=== PATIENT | female | born 1955 | race Caucasian/White ===

== ENCOUNTER 2019-09-30 20:23 | Inpatient (IN) | payer BC ==
[2019-09-30] MEDS ORDERED: Ondansetron 4 MG/2 ML SDV IVPUSH ONE ×2 (20:34→21:42)
[2019-09-30] MEDS ORDERED: Sodium Chloride 0.9% 1,000 ML IV ONE (20:34)
[2019-09-30] MEDS ORDERED: Alum Hydrox/Mag Hydrox/Simeth 15 ML, Metoclopramide 5 MG, Lidocaine 2% 5 ML PO ONE ×3 (20:37)
--- NOTE | 2019-09-30 20:41 | EDM.PDOC ---
<Maico Gonzalez - Last Filed: 09/30/19 23:50> ED HPI GENERAL MEDICAL PROBLEM - General Chief Complaint: Abdominal Pain Stated Complaint: ABDOMINAL PAIN Time Seen by Provider: 09/30/19 20:24 - Related Data Allergies Allergy/AdvReac Type Severity Reaction Status Date / Time omeprazole [From Prilosec] Allergy Itching Verified 10/01/19 04:53 Home Meds: Home Meds . [No Known Home Meds] 09/30/19 [History] Course - Vital Signs Text/Narrative:: The patient was presented to me at the end of the shift because the patient was still having some nausea vomiting and abdominal pain. I discussed the patient with the JOSHUA, and given the initial thought process that the patient previously had an unremarkable CT scan of the abdomen and pelvis that we could simply medicate the patient and then her to pick her up and take her home since her her pain usually resolves within a day. As she is currently having active pain a CT scan of the abdomen pelvis was ordered and the radiologist is concerned that the patient has an internal hernia /developing volvulus causing a small bowel obstruction. I contacted Dr. Wasserman, and she came to the ER to evaluate the patient. Last Recorded V/S: Last Vital Signs Temp 99 F 10/03/19 07:30 Pulse 66 10/03/19 07:30 Resp 15 10/03/19 07:30 BP 137/69 10/03/19 07:30 Pulse Ox 96 10/03/19 07:30 - Orders/Labs/Meds Orders: Medication Orders Acetaminophen (Tylenol) 650 mg PO Q6H PRN PRN Reason: Pain Last Admin: 10/02/19 21:43 Dose: 650 mg Heparin Sodium (Porcine) (Heparin Sodium) 5,000 units SUBCUT Q12H FLORENTINO Last Admin: 10/03/19 09:26 Dose: 5,000 units Admin: 10/02/19 21:42 Dose: 5,000 units Admin: 10/02/19 09:08 Dose: 5,000 units Admin: 10/01/19 22:04 Dose: 5,000 units Admin: 10/01/19 10:33 Dose: 5,000 units Hydromorphone HCl (Dilaudid) 0.5 mg IVPUSH Q1H PRN PRN Reason: Pain Ketorolac Tromethamine (Toradol) 30 mg IVPUSH Q8H PRN PRN Reason: Pain Stop: 10/06/19 02:51 Last Admin: 10/02/19 05:27 Dose: 30 mg Admin: 10/01/19 13:18 Dose: 30 mg Ondansetron HCl (Zofran) 4 mg PO Q6H PRN PRN Reason: Nausea/Vomiting Last Admin: 10/01/19 10:06 Dose: 4 mg Polyethylene Glycol (Miralax) 17 gm PO DAILY FLORENTINO Last Admin: 10/03/19 08:08 Dose: 17 gm Sodium Chloride (Saline Flush) 10 ml FLUSH ASDIRECTED PRN PRN Reason: Keep Vein Open Sodium Chloride (Saline Flush) 2.5 ml FLUSH ASDIRECTED PRN PRN Reason: Keep Vein Open Sodium Chloride (Normal Saline) 10 ml IV ASDIRECTED PRN PRN Reason: IV Use Labs: Laboratory Tests 09/30/19 09/30/19 09/30/19 Range/Units 20:45 20:45 20:45 WBC 9.27 (4.0-11.0) K/uL RBC 4.02 L (4.30-5.90) M/uL Hgb 13.1 (12.0-16.0) g/dL Hct 39.2 (36.0-46.0) % MCV 97.5 (80.0-98.0) fL MCH 32.6 H (27.0-32.0) pg MCHC 33.4 (31.0-37.0) g/dL RDW Std Deviation 44.7 (28.0-62.0) fl RDW Coeff of [place] 12 (11.0-15.0) % Plt Count 178 (150-400) K/uL MPV 9.70 (7.40-12.00) fL Neut % (Auto) 68.7 (48.0-80.0) % Lymph % (Auto) 25.5 (16.0-40.0) % [place] % (Auto) 5.3 (0.0-15.0) % Eos % (Auto) 0.2 (0.0-7.0) % Baso % (Auto) 0.3 (0.0-1.5) % Neut # (Auto) 6.4 H (1.4-5.7) K/uL Lymph # (Auto) 2.4 (0.6-2.4) K/uL [place] # (Auto) 0.5 (0.0-0.8) K/uL Eos # (Auto) 0.0 (0.0-0.7) K/uL Baso # (Auto) 0.0 (0.0-0.1) K/uL Nucleated RBC % 0.0 /100WBC Nucleated RBCs # 0 K/uL Lactate 1.1 (0.20-2.00) mmol/L Sodium 144 (136-145) mmol/L Potassium 3.7 (3.5-5.1) mmol/L Chloride 105 (98-107) mmol/L Carbon Dioxide 28.2 (21.0-32.0) mmol/L BUN 18 (7.0-18.0) mg/dL Creatinine 0.8 (0.6-1.0) mg/dL Est Cr Clr Drug Dosing 68.26 mL/min Estimated GFR (MDRD) > 60.0 ml/min Glucose 131 H (74-106) mg/dL Calcium 9.0 (8.5-10.1) mg/dL Total Bilirubin 0.4 (0.2-1.0) mg/dL AST 20 (15-37) IU/L ALT 23 (14-63) IU/L Alkaline Phosphatase 52 (46-116) U/L Total Protein 7.3 (6.4-8.2) g/dL Albumin 4.2 (3.4-5.0) g/dL Globulin 3.1 (2.6-4.0) g/dL Albumin/Globulin Ratio 1.4 (0.9-1.6) Lipase 101 (73-393) U/L Urine Color Urine Appearance Urine pH (5.0-8.0) Ur Specific [place] (1.001-1.035) Urine Protein (NEGATIVE) mg/dL Urine Glucose (UA) (NEGATIVE) mg/dL Urine Ketones (NEGATIVE) mg/dL Urine Occult Blood (NEGATIVE) Urine Nitrite (NEGATIVE) Urine Bilirubin (NEGATIVE) Urine Urobilinogen (<2.0) EU/dL Ur Leukocyte Esterase (NEGATIVE) Urine RBC (0-2/HPF) Urine WBC (0-5/HPF) Ur Epithelial Cells (NONE-FEW) Amorphous Sediment (NEGATIVE) Urine Bacteria (NEGATIVE) 09/30/19 Range/Units 21:50 WBC (4.0-11.0) K/uL RBC (4.30-5.90) M/uL Hgb (12.0-16.0) g/dL Hct (36.0-46.0) % MCV (80.0-98.0) fL MCH (27.0-32.0) pg MCHC (31.0-37.0) g/dL RDW Std Deviation (28.0-62.0) fl RDW Coeff of [place] (11.0-15.0) % Plt Count (150-400) K/uL MPV (7.40-12.00) fL Neut % (Auto) (48.0-80.0) % Lymph % (Auto) (16.0-40.0) % [place] % (Auto) (0.0-15.0) % Eos % (Auto) (0.0-7.0) % Baso % (Auto) (0.0-1.5) % Neut # (Auto) (1.4-5.7) K/uL Lymph # (Auto) (0.6-2.4) K/uL [place] # (Auto) (0.0-0.8) K/uL Eos # (Auto) (0.0-0.7) K/uL Baso # (Auto) (0.0-0.1) K/uL Nucleated RBC % /100WBC Nucleated RBCs # K/uL Lactate (0.20-2.00) mmol/L Sodium (136-145) mmol/L Potassium (3.5-5.1) mmol/L Chloride (98-107) mmol/L Carbon Dioxide (21.0-32.0) mmol/L BUN (7.0-18.0) mg/dL Creatinine (0.6-1.0) mg/dL Est Cr Clr Drug Dosing mL/min Estimated GFR (MDRD) ml/min Glucose (74-106) mg/dL Calcium (8.5-10.1) mg/dL Total Bilirubin (0.2-1.0) mg/dL AST (15-37) IU/L ALT (14-63) IU/L Alkaline Phosphatase (46-116) U/L Total Protein (6.4-8.2) g/dL Albumin (3.4-5.0) g/dL Globulin (2.6-4.0) g/dL Albumin/Globulin Ratio (0.9-1.6) Lipase (73-393) U/L Urine Color YELLOW Urine Appearance SLT CLOUDY Urine pH 8.5 H (5.0-8.0) Ur Specific [place] 1.020 (1.001-1.035) Urine Protein NEGATIVE (NEGATIVE) mg/dL Urine Glucose (UA) NEGATIVE (NEGATIVE) mg/dL Urine Ketones >=80 (NEGATIVE) mg/dL Urine Occult Blood NEGATIVE (NEGATIVE) Urine Nitrite NEGATIVE (NEGATIVE) Urine Bilirubin NEGATIVE (NEGATIVE) Urine Urobilinogen 0.2 (<2.0) EU/dL Ur Leukocyte Esterase TRACE H (NEGATIVE) Urine RBC 0-1 (0-2/HPF) Urine WBC 4-7 (0-5/HPF) Ur Epithelial Cells OCCASIONAL (NONE-FEW) Amorphous Sediment HEAVY (NEGATIVE) Urine Bacteria RARE (NEGATIVE) Meds: Medications Generic Name Dose Route Start Last Admin Trade Name Freq PRN Reason Stop Dose Admin Acetaminophen 650 mg 10/01/19 13:10 10/02/19 21:43 Tylenol PO 650 mg Q6H PRN Administration Pain Heparin Sodium (Porcine) 5,000 units 10/01/19 10:00 10/03/19 09:26 Heparin Sodium SUBCUT 5,000 units Q12H FLORENTINO Administration Hydromorphone HCl 0.5 mg 10/01/19 02:50 Dilaudid IVPUSH Q1H PRN Pain Ketorolac Tromethamine 30 mg 10/01/19 12:00 10/02/19 05:27 Toradol IVPUSH 10/06/19 02:51 30 mg Q8H PRN Administration Pain Ondansetron HCl 4 mg 10/01/19 02:53 10/01/19 10:06 Zofran PO 4 mg Q6H PRN Administration Nausea/Vomiting Polyethylene Glycol 17 gm 10/03/19 09:00 10/03/19 08:08 Miralax PO 17 gm DAILY FLORENTINO Administration Sodium Chloride 10 ml 10/01/19 00:20 Saline Flush FLUSH ASDIRECTED PRN Keep Vein Open Sodium Chloride 2.5 ml 10/01/19 00:20 Saline Flush FLUSH ASDIRECTED PRN Keep Vein Open Sodium Chloride 10 ml 10/01/19 00:20 Normal Saline IV ASDIRECTED PRN IV Use Discontinued Medications Generic Name Dose Route Start Last Admin Trade Name Darryl PRN Reason Stop Dose Admin Bupivacaine HCl Confirm 10/01/19 00:59 Marcaine 0.5% Administered 10/01/19 01:00 Dose 120 ml .ROUTE .STK-MED ONE Cefazolin Sodium Confirm 10/01/19 00:59 Ancef Administered 10/01/19 01:00 Dose 1 gm .ROUTE .STK-MED ONE Al Hydroxide/Mg Hydroxide 15 0 ml 09/30/19 20:37 09/30/19 20:52 ml/ Metoclopramide HCl 5 mg/ PO 09/30/19 20:38 25 each Lidocaine HCl 5 ml ONETIME ONE Administration Fentanyl Confirm 10/01/19 00:33 Sublimaze Administered 10/01/19 00:34 Dose 100 mcg .ROUTE .STK-MED ONE Glycopyrrolate Confirm 10/01/19 00:33 Robinul Administered 10/01/19 00:34 Dose 0.2 mg .ROUTE .STK-MED ONE Sodium Chloride 1,000 mls @ 999 mls/hr 09/30/19 20:34 09/30/19 20:53 Normal Saline IV 09/30/19 21:34 999 mls/hr STAT ONE Administration Cefazolin Sodium/Dextrose 2 gm 50 mls @ 100 mls/hr 10/01/19 00:20 10/01/19 00 :28 / Premix IV 10/01/19 00:49 100 mls/hr ONETIME ONE Administration Lactated Ringer's 1,000 mls @ 125 mls/hr 10/01/19 00:30 10/01/19 23:45 Ringers, Lactated IV 125 mls/hr ASDIRECTED FLORENTINO Administration Lactated Ringer's 1,000 mls @ 999 mls/hr 10/01/19 00:22 10/01/19 00:28 Ringers, Lactated IV 10/01/19 01:22 999 mls/hr .BOLUS ONE Administration Acetaminophen Confirm 10/01/19 00:40 Ofirmev Administered 10/01/19 00:41 Dose 100 mls @ as directed .ROUTE .STK-MED ONE Piperacillin Sod/Tazobactam 50 mls @ 100 mls/hr 10/01/19 06:00 10/02/19 05:41 Sod 3.375 gm/ Sodium Chloride IV 100 mls/hr Q6H FLORENTINO Administration Ketorolac Tromethamine 30 mg 09/30/19 21:06 09/30/19 21:15 Toradol IVPUSH 09/30/19 21:07 30 mg ONETIME ONE Administration Ketorolac Tromethamine Confirm 10/01/19 00:33 Toradol Administered 10/01/19 00:34 Dose 30 mg .ROUTE .STK-MED ONE Midazolam HCl Confirm 10/01/19 00:33 Versed 1 Mg/Ml Administered 10/01/19 00:34 Dose 2 mg .ROUTE .STK-MED ONE Morphine Sulfate 2 mg 09/30/19 21:51 09/30/19 22:02 Morphine IVPUSH 09/30/19 21:52 2 mg ONETIME ONE Administration Morphine Sulfate Confirm 10/01/19 00:37 Morphine Administered 10/01/19 00:38 Dose 10 mg .ROUTE .STK-MED ONE Morphine Sulfate 4 mg 10/01/19 01:56 10/01/19 03:04 Morphine IVPUSH 10/01/19 01:57 4 mg ONETIME ONE Administration Ondansetron HCl 4 mg 09/30/19 20:34 09/30/19 20:53 Zofran IVPUSH 09/30/19 20:35 4 mg ONETIME ONE Administration Ondansetron HCl 4 mg 09/30/19 21:42 09/30/19 21:46 Zofran IVPUSH 09/30/19 21:43 4 mg ONETIME ONE Administration Ondansetron HCl Confirm 10/01/19 00:32 Zofran Administered 10/01/19 00:33 Dose 4 mg .ROUTE .STK-MED ONE Promethazine HCl 25 mg 09/30/19 21:53 10/01/19 04:56 Phenergan IM 10/01/19 00:06 Not Given ONETIME ONE Propofol Confirm 10/01/19 00:32 Diprivan 20 Ml Administered 10/01/19 00:33 Dose 200 mg .ROUTE .STK-MED ONE Rocuronium [place] Confirm 10/01/19 00:33 Zemuron Administered 10/01/19 00:34 Dose 100 mg .ROUTE .STK-MED ONE Rocuronium [place] Confirm 04/13/20 01:48 Zemuron Administered 10/01/19 01:49 Dose 100 mg .ROUTE .STK-MED ONE Sugammadex Sodium Confirm 10/01/19 00:40 [place] Administered 10/01/19 00:41 Dose 200 mg .ROUTE .STK-MED ONE Departure - Departure Time of Disposition: 23:50 Disposition: Admitted As Inpatient 67 Condition: Good Clinical Impression: Small bowel obstruction - Discharge Information Sepsis Event Note - Focused Exam Date Exam was Performed: 09/30/19 Time Exam was Performed: 23:50 <Carlos Bhat E - Last Filed: 10/03/19 10:19> ED HPI GENERAL MEDICAL PROBLEM - General Source of Information: Reports: Patient History Limitations: Reports: No Limitations - History of Present Illness INITIAL COMMENTS - FREE TEXT/NARRATIVE: HISTORY AND PHYSICAL: History of present illness: Patient is a 63-year-old female who presents to the emergency room with complaints of epigastric pain, right lower quadrant pain, nausea and vomiting. Patient states over the past 5 to 6 months she has had episodes where she will have symptoms like today that will last for approximately half a day to a day and they have been occurring every other month. She did see her primary care provider on 05/2019 and had basic lab work along with a CT without contrast. At that time there was no significant findings and she was told to continue monitoring her symptoms. She was encouraged by her PCP that if this occurred again she should come into the emergency room for reevaluation. Symptoms started this afternoon and she did feel some improvement after vomiting. Shortly after her pain and nausea returned. She does not associate her symptoms with eating. Patient denies any fever, chills, headache, change in vision, syncope or near syncope. Denies any chest pain, back pain, shortness of breath or cough. Denies any diarrhea, constipation or dysuria. Has not noted any blood in urine or stool. Patient has been eating and drinking appropriately. Patient states she recently saw her COMPOUND WORKER and had a complete physical with Pap smear, results were normal. History of cholecystectomy. Review of systems: As per history of present illness and below otherwise all systems reviewed and negative. Past medical history: As per history of present illness and as reviewed below otherwise noncontributory. Surgical history: As per history of present illness and as reviewed below otherwise noncontributory. Social history: See social history for further information Family history: As per history of present illness and as reviewed below otherwise noncontributory. Physical exam: General: Well-developed and well-nourished 63-year-old female. Alert and oriented. Nontoxic-appearing and in no acute distress. HEENT: Atraumatic, normocephalic, pupils equal and reactive bilaterally, negative for conjunctival pallor or scleral icterus, mucous membranes moist, TMs normal bilaterally, throat clear, neck supple, nontender, trachea midline. No drooling or trismus noted. No meningeal signs. No hot potato voice noted. Lungs: Clear to auscultation, breath sounds equal bilaterally, chest nontender. Heart: S1S2, regular rate and rhythm without overt murmur Abdomen: Soft, nondistended, epigastric tenderness, right lower quadrant tenderness. No guarding. Negative for masses or hepatosplenomegaly. Negative for costovertebral tenderness. Skin: Intact, warm, dry. No lesions or rashes noted. Extremities: Atraumatic, moves all extremities per self without difficulty or deficits, negative for cords or calf pain. Neurovascular unremarkable. Neuro: Awake, alert, oriented. Cranial nerves II through XII unremarkable. Cerebellum unremarkable. Motor and sensory unremarkable throughout. Exam nonfocal. Notes: Lab work is unremarkable. Patient still nauseated and requesting additional pain medication. She states her allergy to Morphine isn't a true allergy. She had a sore throat after and endoscopy, she also received Morphine at that time and throught it could have been related. She would like to try the morphine at this time. is driving patient home. We are awaiting the CT report/ findings. Dr Schreiber will assume care and disposition patient appropriately. Diagnostics: CBC, CMP, lipase, UA, CT abdomen and pelvis Therapeutics: IV fluid, Zofran, GI cocktail Diagnosis: Small Bowel Obstruction Definitive disposition and diagnosis as appropriate pending reevaluation and review of above. EPIGASTRIC Pain Score (Numeric/FACES): 8 Past Medical History - Past Health History Medical/Surgical History: Denies Medical/Surgical History Other COMPOUND WORKER History: TUBAL - Infectious Disease History Infectious Disease History: Reports: Chicken Pox - Past Surgical History HEENT Surgical History: Reports: Tonsillectomy GI Surgical History: Reports: Cholecystectomy Social & Family History - Family History Family Medical History: Noncontributory - Tobacco Use Smoking Status *Q: Never Smoker ED ROS GENERAL - Review of Systems Review Of Systems: Comprehensive ROS is negative, except as noted in HPI. ED EXAM, GI/ABD - Physical Exam Exam: See Below (See dictation) Course - Orders/Labs/Meds Labs: Laboratory Tests 09/30/19 09/30/19 09/30/19 Range/Units 20:45 20:45 20:45 WBC 9.27 (4.0-11.0) K/uL RBC 4.02 L (4.30-5.90) M/uL Hgb 13.1 (12.0-16.0) g/dL Hct 39.2 (36.0-46.0) % MCV 97.5 (80.0-98.0) fL MCH 32.6 H (27.0-32.0) pg MCHC 33.4 (31.0-37.0) g/dL RDW Std Deviation 44.7 (28.0-62.0) fl RDW Coeff of [place] 12 (11.0-15.0) % Plt Count 178 (150-400) K/uL MPV 9.70 (7.40-12.00) fL Neut % (Auto) 68.7 (48.0-80.0) % Lymph % (Auto) 25.5 (16.0-40.0) % [place] % (Auto) 5.3 (0.0-15.0) % Eos % (Auto) 0.2 (0.0-7.0) % Baso % (Auto) 0.3 (0.0-1.5) % Neut # (Auto) 6.4 H (1.4-5.7) K/uL Lymph # (Auto) 2.4 (0.6-2.4) K/uL [place] # (Auto) 0.5 (0.0-0.8) K/uL Eos # (Auto) 0.0 (0.0-0.7) K/uL Baso # (Auto) 0.0 (0.0-0.1) K/uL Nucleated RBC % 0.0 /100WBC Nucleated RBCs # 0 K/uL Lactate 1.1 (0.20-2.00) mmol/L Sodium 144 (136-145) mmol/L Potassium 3.7 (3.5-5.1) mmol/L Chloride 105 (98-107) mmol/L Carbon Dioxide 28.2 (21.0-32.0) mmol/L BUN 18 (7.0-18.0) mg/dL Creatinine 0.8 (0.6-1.0) mg/dL Est Cr Clr Drug Dosing 68.26 mL/min Estimated GFR (MDRD) > 60.0 ml/min Glucose 131 H (74-106) mg/dL Calcium 9.0 (8.5-10.1) mg/dL Total Bilirubin 0.4 (0.2-1.0) mg/dL AST 20 (15-37) IU/L ALT 23 (14-63) IU/L Alkaline Phosphatase 52 (46-116) U/L Total Protein 7.3 (6.4-8.2) g/dL Albumin 4.2 (3.4-5.0) g/dL Globulin 3.1 (2.6-4.0) g/dL Albumin/Globulin Ratio 1.4 (0.9-1.6) Lipase 101 (73-393) U/L Urine Color Urine Appearance Urine pH (5.0-8.0) Ur Specific [place] (1.001-1.035) Urine Protein (NEGATIVE) mg/dL Urine Glucose (UA) (NEGATIVE) mg/dL Urine Ketones (NEGATIVE) mg/dL Urine Occult Blood (NEGATIVE) Urine Nitrite (NEGATIVE) Urine Bilirubin (NEGATIVE) Urine Urobilinogen (<2.0) EU/dL Ur Leukocyte Esterase (NEGATIVE) Urine RBC (0-2/HPF) Urine WBC (0-5/HPF) Ur Epithelial Cells (NONE-FEW) Amorphous Sediment (NEGATIVE) Urine Bacteria (NEGATIVE) 09/30/19 Range/Units 21:50 WBC (4.0-11.0) K/uL RBC (4.30-5.90) M/uL Hgb (12.0-16.0) g/dL Hct (36.0-46.0) % MCV (80.0-98.0) fL MCH (27.0-32.0) pg MCHC (31.0-37.0) g/dL RDW Std Deviation (28.0-62.0) fl RDW Coeff of [place] (11.0-15.0) % Plt Count (150-400) K/uL MPV (7.40-12.00) fL Neut % (Auto) (48.0-80.0) % Lymph % (Auto) (16.0-40.0) % [place] % (Auto) (0.0-15.0) % Eos % (Auto) (0.0-7.0) % Baso % (Auto) (0.0-1.5) % Neut # (Auto) (1.4-5.7) K/uL Lymph # (Auto) (0.6-2.4) K/uL [place] # (Auto) (0.0-0.8) K/uL Eos # (Auto) (0.0-0.7) K/uL Baso # (Auto) (0.0-0.1) K/uL Nucleated RBC % /100WBC Nucleated RBCs # K/uL Lactate (0.20-2.00) mmol/L Sodium (136-145) mmol/L Potassium (3.5-5.1) mmol/L Chloride (98-107) mmol/L Carbon Dioxide (21.0-32.0) mmol/L BUN (7.0-18.0) mg/dL Creatinine (0.6-1.0) mg/dL Est Cr Clr Drug Dosing mL/min Estimated GFR (MDRD) ml/min Glucose (74-106) mg/dL Calcium (8.5-10.1) mg/dL Total Bilirubin (0.2-1.0) mg/dL AST (15-37) IU/L ALT (14-63) IU/L Alkaline Phosphatase (46-116) U/L Total Protein (6.4-8.2) g/dL Albumin (3.4-5.0) g/dL Globulin (2.6-4.0) g/dL Albumin/Globulin Ratio (0.9-1.6) Lipase (73-393) U/L Urine Color YELLOW Urine Appearance SLT CLOUDY Urine pH 8.5 H (5.0-8.0) Ur Specific [place] 1.020 (1.001-1.035) Urine Protein NEGATIVE (NEGATIVE) mg/dL Urine Glucose (UA) NEGATIVE (NEGATIVE) mg/dL Urine Ketones >=80 (NEGATIVE) mg/dL Urine Occult Blood NEGATIVE (NEGATIVE) Urine Nitrite NEGATIVE (NEGATIVE) Urine Bilirubin NEGATIVE (NEGATIVE) Urine Urobilinogen 0.2 (<2.0) EU/dL Ur Leukocyte Esterase TRACE H (NEGATIVE) Urine RBC 0-1 (0-2/HPF) Urine WBC 4-7 (0-5/HPF) Ur Epithelial Cells OCCASIONAL (NONE-FEW) Amorphous Sediment HEAVY (NEGATIVE) Urine Bacteria RARE (NEGATIVE) Sepsis Event Note - Evaluation Sepsis Screening Result: No Definite Risk - Focused Exam Date Exam was Performed: 10/03/19 Time Exam was Performed: 10:12
[2019-09-30] MEDS ORDERED: Ketorolac 30 MG/ML SDV IVPUSH ONE (21:06)
[2019-09-30 21:25] LABS: BLOOD UREA NITROGEN,BUN 18 mg/dL (7.0-18.0); CARBON DIOXIDE,CO2 28.2 mmol/L (21.0-32.0); CHLORIDE,CL 105 mmol/L (98-107); GLUCOSE RANDOM 131 mg/dL (74-106); LIPASE 101 U/L (73-393); POTASSIUM,K 3.7 mmol/L (3.5-5.1); SODIUM,NA 144 mmol/L (136-145)
[2019-09-30] MEDS ORDERED: Morphine 2 MG/ML Syringe IVPUSH ONE (21:51)
[2019-09-30] MEDS ORDERED: Promethazine 25 MG/ML SDV IM ONE (21:53)
--- NOTE | 2019-09-30 22:28 | CT ---
INDICATION: Epigastric pain. Right lower quadrant pain. COMPARISON: 14 June 2019. TECHNIQUE: Noncontrast images. FINDINGS: Saline breast implants. Linguine sign of chronic capsule disruption. Cholecystectomy clips. No nephrolithiasis. Moderate formed stool through the redundant colon. Loops of mildly dilated small bowel show stasis changes in the low abdomen and ventral pelvis. Swirling configuration suggest internal hernia or small bowel volvulus (image 80 through 101 series 201). No free air. No free fluid. No pneumatosis. No portal venous gas. Proximal small bowel is not. Minor levoscoliosis. No fracture or bone lesion. IMPRESSION: 1. Internal hernia or small bowel volvulus with mildly dilated loops of presumed distal ileum demonstrating changes of intraluminal stasis in the low abdomen and ventral pelvis. Surgical referral recommended. 2. No other significant interval change. Please note that all CT scans at this facility use dose modulation, iterative reconstruction, and/or weight-based dosing when appropriate to reduce radiation dose to as low as reasonably achievable. Dictated by Matthieu Leslie MD @ Sep 30 2019 10:25PM Signed by Dr. Matthieu Leslie @ Sep 30 2019 10:25PM
[2019-10-01] MEDS ORDERED: Sodium Chloride 0.9% 10 ML SDV IV PRN (00:20)
[2019-10-01] MEDS ORDERED: Sodium Chloride 0.9% 2.5 ML Syringe FLUSH PRN (00:20)
[2019-10-01] MEDS ORDERED: ceFAZolin 2 GM in Premix Bag 1 BAG IV ONE (00:20)
[2019-10-01] MEDS ORDERED: Sodium Chloride 0.9% 10 ML Syringe FLUSH PRN (00:20)
[2019-10-01] MEDS ORDERED: Lactated Ringers 1,000 ML IV ONE (00:22)
--- NOTE | 2019-10-01 00:28 | PCM.HP.2 ---
H&P History of Present Illness - General Date of Service: 10/01/19 Admit Problem/Dx: Admission Diagnosis/Problem Admission Diagnosis/Problem Small bowel obstruction Source of Information: Patient History Limitations: Reports: No Limitations - History of Present Illness Initial Comments - Free Text/Narative: Patient is a 63 year old female who presents with abdominal pain. This was associated with nausea and vomiting. She has had similar episodes starting in May. It begins as constant abdominal pain that causes nausea and vomiting. This will persist for a day or two then resolve on its own. After it happened in May she had a CT abdomen pelvis that was normal. She was in a normal state of health, had a BM today, and ate supper when around 6 pm she started developing pain. Shortly after she started vomiting. She denies fevers, chills. Her last colonoscopy was 2 years ago. She was found to have a small tubular adenoma. No family history of cancers. She has had a laparoscopic cholecystectomy and tubal ligation. She denies any history of endometriosis. She denies any changes in her bowel habits otherwise. Her vitals were stable on arrival. All labs including lactate was normal. CT abdomen pelvis showed a 120 degree turn of the distal ileum. There was no evidence of thickened bowel but evidence of mild proximal bowel dilation. The radiologist questioned an internal hernia vs volvulus. EPIGASTRIC Pain Score (Numeric/FACES): 8 - Related Data Allergies/Adverse Reactions: Allergies Allergy/AdvReac Type Severity Reaction Status Date / Time omeprazole [From Prilosec] Allergy Itching Verified 09/30/19 20:33 Home Medications: Home Meds . [No Known Home Meds] 09/30/19 [History] Past Medical History - Past Health History Medical/Surgical History: Denies Medical/Surgical History Other OB/BYN History: TUBAL - Infectious Disease History Infectious Disease History: Reports: Chicken Pox - Past Surgical History HEENT Surgical History: Reports: Tonsillectomy GI Surgical History: Reports: Cholecystectomy Social & Family History - Family History Family Medical History: Noncontributory - Tobacco Use Smoking Status *Q: Never Smoker H&P Review of Systems - Review of Systems: Review Of Systems: Comprehensive ROS is negative, except as noted in HPI. General: Reports: No Symptoms HEENT: Reports: No Symptoms Pulmonary: Reports: No Symptoms Cardiovascular: Reports: No Symptoms Gastrointestinal: Reports: Abdominal Pain Genitourinary: Reports: No Symptoms Musculoskeletal: Reports: No Symptoms Skin: Reports: No Symptoms Psychiatric: Reports: No Symptoms Exam - Exam Exam: See Below - Vital Signs Vital Signs: Last Vital Signs Temp 36.4 C 10/01/19 00:01 Pulse 81 10/01/19 00:01 Resp 18 10/01/19 00:01 BP 136/43 L 10/01/19 00:01 Pulse Ox 97 10/01/19 00:01 Weight: 63.503 kg - Exam General: Alert, Oriented HEENT: Conjunctiva Clear, Mucosa Moist & [place], Posterior Pharynx Clear Neck: Supple, Trachea Midline Lungs: Clear to Auscultation, Normal Respiratory Effort Cardiovascular: Regular Rate, Regular Rhythm GI/Abdominal Exam: Soft, Tender (epigastric area ). No: Guarding, Rigid, Rebound Back Exam: Normal Inspection, Full Range of Motion Extremities: Normal Inspection, Normal Range of Motion Skin: Warm, Dry, Intact Neuro Extensive - Mental Status: Alert, Oriented x3 - Patient Data Lab Results Last 24 hrs: Laboratory Results - last 24 hr 09/30/19 09/30/19 09/30/19 Range/Units 20:45 20:45 20:45 WBC 9.27 (4.0-11.0) K/uL RBC 4.02 L (4.30-5.90) M/uL Hgb 13.1 (12.0-16.0) g/dL Hct 39.2 (36.0-46.0) % MCV 97.5 (80.0-98.0) fL MCH 32.6 H (27.0-32.0) pg MCHC 33.4 (31.0-37.0) g/dL RDW Std Deviation 44.7 (28.0-62.0) fl RDW Coeff of [place] 12 (11.0-15.0) % Plt Count 178 (150-400) K/uL MPV 9.70 (7.40-12.00) fL Neut % (Auto) 68.7 (48.0-80.0) % Lymph % (Auto) 25.5 (16.0-40.0) % [place] % (Auto) 5.3 (0.0-15.0) % Eos % (Auto) 0.2 (0.0-7.0) % Baso % (Auto) 0.3 (0.0-1.5) % Neut # (Auto) 6.4 H (1.4-5.7) K/uL Lymph # (Auto) 2.4 (0.6-2.4) K/uL [place] # (Auto) 0.5 (0.0-0.8) K/uL Eos # (Auto) 0.0 (0.0-0.7) K/uL Baso # (Auto) 0.0 (0.0-0.1) K/uL Nucleated RBC % 0.0 /100WBC Nucleated RBCs # 0 K/uL Lactate 1.1 (0.20-2.00) mmol/L Sodium 144 (136-145) mmol/L Potassium 3.7 (3.5-5.1) mmol/L Chloride 105 (98-107) mmol/L Carbon Dioxide 28.2 (21.0-32.0) mmol/L BUN 18 (7.0-18.0) mg/dL Creatinine 0.8 (0.6-1.0) mg/dL Est Cr Clr Drug Dosing 68.26 mL/min Estimated GFR (MDRD) > 60.0 ml/min Glucose 131 H (74-106) mg/dL Calcium 9.0 (8.5-10.1) mg/dL Total Bilirubin 0.4 (0.2-1.0) mg/dL AST 20 (15-37) IU/L ALT 23 (14-63) IU/L Alkaline Phosphatase 52 (46-116) U/L Total Protein 7.3 (6.4-8.2) g/dL Albumin 4.2 (3.4-5.0) g/dL Globulin 3.1 (2.6-4.0) g/dL Albumin/Globulin Ratio 1.4 (0.9-1.6) Lipase 101 (73-393) U/L Urine Color Urine Appearance Urine pH (5.0-8.0) Ur Specific [place] (1.001-1.035) Urine Protein (NEGATIVE) mg/dL Urine Glucose (UA) (NEGATIVE) mg/dL Urine Ketones (NEGATIVE) mg/dL Urine Occult Blood (NEGATIVE) Urine Nitrite (NEGATIVE) Urine Bilirubin (NEGATIVE) Urine Urobilinogen (<2.0) EU/dL Ur Leukocyte Esterase (NEGATIVE) Urine RBC (0-2/HPF) Urine WBC (0-5/HPF) Ur Epithelial Cells (NONE-FEW) Amorphous Sediment (NEGATIVE) Urine Bacteria (NEGATIVE) 09/30/19 Range/Units 21:50 WBC (4.0-11.0) K/uL RBC (4.30-5.90) M/uL Hgb (12.0-16.0) g/dL Hct (36.0-46.0) % MCV (80.0-98.0) fL MCH (27.0-32.0) pg MCHC (31.0-37.0) g/dL RDW Std Deviation (28.0-62.0) fl RDW Coeff of [place] (11.0-15.0) % Plt Count (150-400) K/uL MPV (7.40-12.00) fL Neut % (Auto) (48.0-80.0) % Lymph % (Auto) (16.0-40.0) % [place] % (Auto) (0.0-15.0) % Eos % (Auto) (0.0-7.0) % Baso % (Auto) (0.0-1.5) % Neut # (Auto) (1.4-5.7) K/uL Lymph # (Auto) (0.6-2.4) K/uL [place] # (Auto) (0.0-0.8) K/uL Eos # (Auto) (0.0-0.7) K/uL Baso # (Auto) (0.0-0.1) K/uL Nucleated RBC % /100WBC Nucleated RBCs # K/uL Lactate (0.20-2.00) mmol/L Sodium (136-145) mmol/L Potassium (3.5-5.1) mmol/L Chloride (98-107) mmol/L Carbon Dioxide (21.0-32.0) mmol/L BUN (7.0-18.0) mg/dL Creatinine (0.6-1.0) mg/dL Est Cr Clr Drug Dosing mL/min Estimated GFR (MDRD) ml/min Glucose (74-106) mg/dL Calcium (8.5-10.1) mg/dL Total Bilirubin (0.2-1.0) mg/dL AST (15-37) IU/L ALT (14-63) IU/L Alkaline Phosphatase (46-116) U/L Total Protein (6.4-8.2) g/dL Albumin (3.4-5.0) g/dL Globulin (2.6-4.0) g/dL Albumin/Globulin Ratio (0.9-1.6) Lipase (73-393) U/L Urine Color YELLOW Urine Appearance SLT CLOUDY Urine pH 8.5 H (5.0-8.0) Ur Specific [place] 1.020 (1.001-1.035) Urine Protein NEGATIVE (NEGATIVE) mg/dL Urine Glucose (UA) NEGATIVE (NEGATIVE) mg/dL Urine Ketones >=80 (NEGATIVE) mg/dL Urine Occult Blood NEGATIVE (NEGATIVE) Urine Nitrite NEGATIVE (NEGATIVE) Urine Bilirubin NEGATIVE (NEGATIVE) Urine Urobilinogen 0.2 (<2.0) EU/dL Ur Leukocyte Esterase TRACE H (NEGATIVE) Urine RBC 0-1 (0-2/HPF) Urine WBC 4-7 (0-5/HPF) Ur Epithelial Cells OCCASIONAL (NONE-FEW) Amorphous Sediment HEAVY (NEGATIVE) Urine Bacteria RARE (NEGATIVE) Result Diagrams: 09/30/19 20:45 09/30/19 20:45 Sepsis Event Note - Evaluation Sepsis Screening Result: No Definite Risk - Focused Exam Vital Signs: Vital Signs Temp Pulse Resp BP Pulse Ox 10/01/19 00:01 36.4 C 81 18 136/43 L 97 09/30/19 23:15 65 115/62 99 09/30/19 21:47 63 19 130/55 L 99 09/30/19 20:30 36.0 C L 67 16 135/53 L 99 Date Exam was Performed: 10/01/19 Time Exam was Performed: 00:22 - Problem List (1) Small bowel obstruction SNOMED Code(s): 009998505 ICD Code: K56.609 - UNSP INTESTNL OBST, UNSP TO PARTIAL VERSUS COMPLETE OBST Status: Acute Current Visit: Yes Problem List Initiated/Reviewed/Updated: Yes Orders Last 24hrs: Active Orders 24 hr Category Date Time Status Patient Status [ADT] Routine ADT 10/01/19 00:20 Ordered Antiembolic Devices [RC] PER UNIT ROUTINE Care 10/01/19 00:22 Ordered EKG Documentation Completion [RC] STAT Care 09/30/19 21:02 Active RT Incentive Spirometry [RC] Q1HWA Care 10/01/19 00:20 Ordered Verify Patient Consent Obtain [RC] ASDIRECTED Care 10/01/19 00:20 Ordered CULTURE URINE [RM] Stat Lab 09/30/19 21:50 Received Lactated Ringers @ 125 MLS/HR(1000ml) Med 10/01/19 00:30 Ordered Lactated Ringers [Ringers, Lactated] 1,000 ml IV ASDIRECTED Lactated Ringers [Ringers, Lactated] 1,000 ml Med 10/01/19 00:22 Ordered IV .BOLUS Sodium Chloride 0.9% [Normal Saline] Med 10/01/19 00:20 Ordered 10 ml IV ASDIRECTED PRN Sodium Chloride 0.9% [Saline Flush] Med 10/01/19 00:20 Ordered 10 ml FLUSH ASDIRECTED PRN Sodium Chloride 0.9% [Saline Flush] Med 10/01/19 00:20 Ordered 2.5 ml FLUSH ASDIRECTED PRN ceFAZolin [Ancef] 2 gm Med 10/01/19 00:20 Ordered Premix Bag 1 bag IV ONETIME Peripheral IV Insertion Adult [OM.PC] Routine Oth 10/01/19 00:20 Ordered Sequential Compression Device [OM.PC] Routine Oth 10/01/19 00:20 Ordered Resuscitation Status Routine Resus Stat 10/01/19 00:20 Ordered Assessment/Plan Comment:: I reviewed the imaging findings and discussed them with another radiologist ( Dr. Reeder) who agreed with me that there is a turning of the small bowel, but it doesn't appear to be a complete volvulus. Her physical exam is not very impressive and her labs are normal. However, given the CT findings and the fact that this keeps reoccurring, I believe we need to go the OR for an exploratory laparotomy. I discussed the possibility of possible lysis of adhesions and possible small bowel resection. The patient and I discussed the possibility of more scar tissue forming in the future. She and I discussed the possible perioperative courses this may take, hospitalization and work restrictions afterwards, as well as the risks including bleeding, infection, or damage to surrounding structures. She verbalized understanding and wishes to proceed.
[2019-10-01] MEDS ORDERED: Ondansetron 4 MG/2 ML SDV ONE (00:32)
[2019-10-01] MEDS ORDERED: Propofol 200 MG/20 ML SDV ONE (00:32)
[2019-10-01] MEDS ORDERED: fentaNYL 100 MCG/2 ML SDV ONE (00:33)
[2019-10-01] MEDS ORDERED: Ketorolac 30 MG/ML SDV ONE (00:33)
[2019-10-01] MEDS ORDERED: Midazolam 1 MG/ML 2 ML SDV ONE (00:33)
[2019-10-01] MEDS ORDERED: Glycopyrrolate 0.2 MG/ML SDV ONE (00:33)
[2019-10-01] MEDS ORDERED: Rocuronium 100 MG/10 ML Syringe ONE ×2 (00:33→01:48)
[2019-10-01] MEDS ORDERED: Morphine 10 MG/ML Syringe ONE (00:37)
[2019-10-01] MEDS ORDERED: Sugammadex Sodium 200 MG/2 ML VIAL ONE (00:40)
[2019-10-01] MEDS ORDERED: Bupivacaine 0.5% 30 ML SDV ONE (00:59)
[2019-10-01] MEDS ORDERED: ceFAZolin 1 GM Vial ONE (00:59)
--- NOTE | 2019-10-01 01:04 | PCM.PREANE ---
Preanesthetic Assessment - Procedure Proposed Procedure: Exploratory Laparotomy - Anesthesia/Transfusion/Family Hx Anesthesia History: Prior Anesthesia Reaction (Post op Nausea) Family History of Anesthesia Reaction: No Transfusion History: No Prior Transfusion(s) Intubation History: Intubation other than for Surgery in past - Review of Systems General: No Symptoms Pulmonary: No Symptoms Cardiovascular: No Symptoms Gastrointestinal: Abdominal Pain, Vomiting Neurological: No Symptoms Other: Reports: None - Physical Assessment NPO Status Date: 09/30/19 NPO Status Time: 17:00 Vital Signs: Last Vital Signs Temp 36.6 C 10/01/19 00:33 Pulse 67 10/01/19 00:33 Resp 16 10/01/19 00:33 BP 136/43 L 10/01/19 00:33 Pulse Ox 98 10/01/19 00:33 Height: 1.68 m Weight: 63.503 kg ASA Class: 2E Mental Status: Alert & Oriented x3 Airway Class: Mallampati = 2 Dentition: Reports: Normal Dentition Thyro-Mental Finger Breadths: 3 Mouth Opening Finger Breadths: 3 ROM/Head Extension: Full Lungs: Clear to Auscultation Cardiovascular: Regular Rate - Lab Values: Laboratory Last Values WBC 9.27 K/uL (4.0-11.0) 09/30/19 20:45 RBC 4.02 M/uL (4.30-5.90) L 09/30/19 20:45 Hgb 13.1 g/dL (12.0-16.0) 09/30/19 20:45 Hct 39.2 % (36.0-46.0) 09/30/19 20:45 MCV 97.5 fL (80.0-98.0) 09/30/19 20:45 MCH 32.6 pg (27.0-32.0) H 09/30/19 20:45 MCHC 33.4 g/dL (31.0-37.0) 09/30/19 20:45 RDW Std Deviation 44.7 fl (28.0-62.0) 09/30/19 20:45 RDW Coeff of [place] 12 % (11.0-15.0) 09/30/19 20:45 Plt Count 178 K/uL (150-400) 09/30/19 20:45 MPV 9.70 fL (7.40-12.00) 09/30/19 20:45 Neut % (Auto) 68.7 % (48.0-80.0) 09/30/19 20:45 Lymph % (Auto) 25.5 % (16.0-40.0) 09/30/19 20:45 [place] % (Auto) 5.3 % (0.0-15.0) 09/30/19 20:45 Eos % (Auto) 0.2 % (0.0-7.0) 09/30/19 20:45 Baso % (Auto) 0.3 % (0.0-1.5) 09/30/19 20:45 Neut # (Auto) 6.4 K/uL (1.4-5.7) H 09/30/19 20:45 Lymph # (Auto) 2.4 K/uL (0.6-2.4) 09/30/19 20:45 [place] # (Auto) 0.5 K/uL (0.0-0.8) 09/30/19 20:45 Eos # (Auto) 0.0 K/uL (0.0-0.7) 09/30/19 20:45 Baso # (Auto) 0.0 K/uL (0.0-0.1) 09/30/19 20:45 Nucleated RBC % 0.0 /100WBC 09/30/19 20:45 Nucleated RBCs # 0 K/uL 09/30/19 20:45 Lactate 1.1 mmol/L (0.20-2.00) 09/30/19 20:45 Sodium 144 mmol/L (136-145) 09/30/19 20:45 Potassium 3.7 mmol/L (3.5-5.1) 09/30/19 20:45 Chloride 105 mmol/L (98-107) 09/30/19 20:45 Carbon Dioxide 28.2 mmol/L (21.0-32.0) 09/30/19 20:45 BUN 18 mg/dL (7.0-18.0) 09/30/19 20:45 Creatinine 0.8 mg/dL (0.6-1.0) 09/30/19 20:45 Est Cr Clr Drug Dosing 68.26 mL/min 09/30/19 20:45 Estimated GFR (MDRD) > 60.0 ml/min 09/30/19 20:45 Glucose 131 mg/dL (74-106) H 09/30/19 20:45 Calcium 9.0 mg/dL (8.5-10.1) 09/30/19 20:45 Total Bilirubin 0.4 mg/dL (0.2-1.0) 09/30/19 20:45 AST 20 IU/L (15-37) 09/30/19 20:45 ALT 23 IU/L (14-63) 09/30/19 20:45 Alkaline Phosphatase 52 U/L (46-116) 09/30/19 20:45 Total Protein 7.3 g/dL (6.4-8.2) 09/30/19 20:45 Albumin 4.2 g/dL (3.4-5.0) 09/30/19 20:45 Globulin 3.1 g/dL (2.6-4.0) 09/30/19 20:45 Albumin/Globulin Ratio 1.4 (0.9-1.6) 09/30/19 20:45 Lipase 101 U/L (73-393) 09/30/19 20:45 Urine Color YELLOW 09/30/19 21:50 Urine Appearance SLT CLOUDY 09/30/19 21:50 Urine pH 8.5 (5.0-8.0) H 09/30/19 21:50 Ur Specific [place] 1.020 (1.001-1.035) 09/30/19 21:50 Urine Protein NEGATIVE mg/dL (NEGATIVE) 09/30/19 21:50 Urine Glucose (UA) NEGATIVE mg/dL (NEGATIVE) 09/30/19 21:50 Urine Ketones >=80 mg/dL (NEGATIVE) 09/30/19 21:50 Urine Occult Blood NEGATIVE (NEGATIVE) 09/30/19 21:50 Urine Nitrite NEGATIVE (NEGATIVE) 09/30/19 21:50 Urine Bilirubin NEGATIVE (NEGATIVE) 09/30/19 21:50 Urine Urobilinogen 0.2 EU/dL (<2.0) 09/30/19 21:50 Ur Leukocyte Esterase TRACE (NEGATIVE) H 09/30/19 21:50 Urine RBC 0-1 (0-2/HPF) 09/30/19 21:50 Urine WBC 4-7 (0-5/HPF) 09/30/19 21:50 Ur Epithelial Cells OCCASIONAL (NONE-FEW) 09/30/19 21:50 Amorphous Sediment HEAVY (NEGATIVE) 09/30/19 21:50 Urine Bacteria RARE (NEGATIVE) 09/30/19 21:50 - Allergies Allergies/Adverse Reactions: Allergies Allergy/AdvReac Type Severity Reaction Status Date / Time omeprazole [From Prilosec] Allergy Itching Verified 09/30/19 20:33 - Blood Blood Available: No Product(s) Available: None - Anesthesia Plan Pre-Op Medication Ordered: None - Acknowledgements Anesthesia Type Planned: General Anesthesia Pt an Appropriate Candidate for the Planned Anesthesia: Yes Alternatives and Risks of Anesthesia Discussed w Pt/Guardian: Yes Pt/Guardian Understands and Agrees with Anesthesia Plan: Yes Additional Comments: Discussed. ? answered. Accepts. Permit signed. PreAnesthesia Questionnaire - Past Health History Medical/Surgical History: Denies Medical/Surgical History Other OB/BYN History: TUBAL - Infectious Disease History Infectious Disease History: Reports: Chicken Pox - Past Surgical History HEENT Surgical History: Reports: Tonsillectomy GI Surgical History: Reports: Cholecystectomy - SUBSTANCE USE Smoking Status *Q: Never Smoker - HOME MEDS Home Medications: Home Meds . [No Known Home Meds] 09/30/19 [History] - CURRENT (IN HOUSE) MEDS Current Meds: Current Medications Lactated Ringer's (Ringers, Lactated) 1,000 mls @ 125 mls/hr IV ASDIRECTED [place]OR[place] Lactated Ringer's (Ringers, Lactated) 1,000 mls @ 999 mls/hr IV .BOLUS ONE Stop: 10/01/19 01:22 Last Admin: 10/01/19 00:28 Dose: 999 mls/hr Sodium Chloride (Saline Flush) 10 ml FLUSH ASDIRECTED PRN PRN Reason: Keep Vein Open Sodium Chloride (Saline Flush) 2.5 ml FLUSH ASDIRECTED PRN PRN Reason: Keep Vein Open Sodium Chloride (Normal Saline) 10 ml IV ASDIRECTED PRN PRN Reason: IV Use Discontinued Medications Al Hydroxide/Mg Hydroxide 15 ml/ Metoclopramide HCl 5 mg/Lidocaine HCl 5 ml 0 ml PO ONETIME ONE Stop: 09/30/19 20:38 Last Admin: 09/30/19 20:52 Dose: 25 each Fentanyl (Sublimaze) Confirm Administered Dose 100 mcg .ROUTE .STK-MED ONE Stop: 10/01/19 00:34 Glycopyrrolate (Robinul) Confirm Administered Dose 0.2 mg .ROUTE .STK-MED ONE Stop: 10/01/19 00:34 Sodium Chloride (Normal Saline) 1,000 mls @ 999 mls/hr IV STAT ONE Stop: 09/30/19 21:34 Last Admin: 09/30/19 20:53 Dose: 999 mls/hr Cefazolin Sodium/Dextrose 2 gm (/ Premix) 50 mls @ 100 mls/hr IV ONETIME ONE Stop: 10/01/19 00:49 Last Admin: 10/01/19 00:28 Dose: 100 mls/hr Acetaminophen (Ofirmev) Confirm Administered Dose 100 mls @ as directed .ROUTE .STK-MED ONE Stop: 10/01/19 00:41 Ketorolac Tromethamine (Toradol) 30 mg IVPUSH ONETIME ONE Stop: 09/30/19 21:07 Last Admin: 09/30/19 21:15 Dose: 30 mg Ketorolac Tromethamine (Toradol) Confirm Administered Dose 30 mg .ROUTE .STK- MED ONE Stop: 10/01/19 00:34 Midazolam HCl (Versed 1 Mg/Ml) Confirm Administered Dose 2 mg .ROUTE .STK-MED ONE Stop: 10/01/19 00:34 Morphine Sulfate (Morphine) 2 mg IVPUSH ONETIME ONE Stop: 09/30/19 21:52 Last Admin: 09/30/19 22:02 Dose: 2 mg Morphine Sulfate (Morphine) Confirm Administered Dose 10 mg .ROUTE .STK-MED ONE Stop: 10/01/19 00:38 Ondansetron HCl (Zofran) 4 mg IVPUSH ONETIME ONE Stop: 09/30/19 20:35 Last Admin: 09/30/19 20:53 Dose: 4 mg Ondansetron HCl (Zofran) 4 mg IVPUSH ONETIME ONE Stop: 09/30/19 21:43 Last Admin: 09/30/19 21:46 Dose: 4 mg Ondansetron HCl (Zofran) Confirm Administered Dose 4 mg .ROUTE .STK-MED ONE Stop: 10/01/19 00:33 Promethazine HCl (Phenergan) 25 mg IM ONETIME ONE Stop: 10/01/19 00:06 Propofol (Diprivan 20 Ml) Confirm Administered Dose 200 mg .ROUTE .STK-MED ONE Stop: 10/01/19 00:33 Rocuronium Novelty (Zemuron) Confirm Administered Dose 100 mg .ROUTE .STK-MED ONE Stop: 10/01/19 00:34 Sugammadex Sodium (Bridion) Confirm Administered Dose 200 mg .ROUTE .STK-MED ONE Stop: 10/01/19 00:41
[2019-10-01] MEDS ORDERED: Morphine 4 MG/ML Syringe IVPUSH ONE (01:56)
[2019-10-01] MEDS ORDERED: HYDROmorphone 1 MG/ML Syringe IVPUSH PRN (02:50)
[2019-10-01] MEDS ORDERED: Ondansetron 4 MG Tab PO PRN (02:53)
--- NOTE | 2019-10-01 02:55 | PCM.OPNOTE ---
- General Post-Op/Procedure Note Date of Surgery/Procedure: 10/01/19 Operative Procedure(s): exploratory laparotomy, appendectomy, lysis of adhesion Findings: Hemorrhagic appearing appendix adhered to omentum and mesentery of small bowel causing partial obstruction Pre Op Diagnosis: SBO Post-Op Diagnosis: appendicitis, internal hernia, SBO Anesthesia Technique: General ET Tube Primary Surgeon: Leanna Wasserman Fluid Replacement, Intraop: 1,500 Output, Urine Amount: 100 EBL in mLs: 10 Condition: Stable Free Text/Narrative:: Intake & Output 09/30/19 09/30/19 10/01/19 14:59 22:59 06:59 Output Total 300 Balance -300
--- NOTE | 2019-10-01 03:22 | OR ---
SURGEON: LEANNA MONREAL MD DATE OF PROCEDURE: 10/01/2019 PREOPERATIVE DIAGNOSIS: Small bowel obstruction. POSTOPERATIVE DIAGNOSES: 1. Intraabdominal adhesion. 2. Appendicitis. PROCEDURE PERFORMED: Exploratory laparotomy, appendectomy, lysis of adhesion. PRIMARY SURGEON: Leanna Monreal MD. SECONDARY SURGEON: Dr. Huan Driver. ANESTHESIA: General endotracheal anesthesia. FLUIDS: 1500 mL of crystalloid. EBL: 10 mL. URINE OUTPUT: 100 mL. FINDINGS: Hemorrhagic-appearing appendix, which was adhered to a loop of distal ileum and overlying omentum, which appeared to be causing a mild obstructive effect. COMPLICATIONS: None. INDICATIONS: The patient is a 63-year-old female, who presented this evening with abdominal pain. The patient has been having intermittent abdominal pain associated with nausea and vomiting for the past several months. Workup revealed normal- appearing labs, but a CT scan of the abdomen and pelvis showed questionable volvulus or internal hernia within the abdomen. Given these findings, I expressed the need to perform an exploratory laparotomy on the patient. We discussed in length the details of the operation and the potential possibilities. We discussed the risks including bleeding, infection, or damage to surrounding structures. The patient verbalized understanding and wishes to proceed. PROCEDURE IN DETAIL: The patient was brought into the OR and placed on the OR table in supine position. A time-out was completed verifying the patient's name, age, date of , allergies, and procedure to be performed. General endotracheal anesthesia was induced. A Pineda catheter was placed. The patient's abdomen was prepped and draped in usual standard fashion. A midline incision was made using a 15 blade. Cautery was then used to dissect through the layers of the subcutaneous fat down to the fascia. The fascia was elevated with Kochers at the level of the umbilicus and incised sharply using Metzenbaum scissors. Entry into the abdomen was gained. I then extended my incision just above and below the umbilicus. A [place] retractor was placed in the abdomen. The skin was protected with moistened laps. The omentum was elevated and the small bowel was eviscerated. We started our exploration in the right lower quadrant. As soon as we started running the ileum, we identified hemorrhagic, irritated-appearing area on the mesenteric side of the bowel. This appeared to have been adhered to a hemorrhagic as well as slightly enlarged and inflamed-appearing appendix. The omentum overlying it appeared mildly hemorrhagic and inflamed as well. There did not appear to be a mass in the appendix and there was no evidence of overt perforation. The decision was made to perform an appendectomy given the abnormal appearance of the appendix. A window was made between the base of the appendix and the appendiceal mesentery. The appendiceal mesentery was clamped and cut. The proximal cut end of the appendiceal mesentery was then tied off with a 2-0 silk tie. The base of the appendix was tied off using a 3-0 Vicryl tie. Just distal to this, a clamp was placed on the appendix and the appendix was cut. It was passed off the field and sent to pathology as appendix. A pursestring suture was placed around the appendix. While trying to invert the base of the appendix, the Vicryl tie came off. A 3-0 silk stick tie was then used to ligate the base of the appendix instead. A 3-0 silk Z stitch was then placed over the top of the appendix and then inverted partially. A small tongue of omentum was then oversewn over the top of the base of the appendix using the free ends of the silk tie. The pelvis and right lower quadrant were irrigated with normal saline, which was suctioned out. We then ran the small bowel to the ligament of Treitz. This appeared normal other than the slightly inflamed area that I had noticed on the mesentery before. No other findings were found in the abdomen upon inspection. An NG tube was placed and palpated within the gastric body. We then closed the peritoneum and fascia with running 1-0 PDS suture. The subcutaneous fat layer and fascia were anesthetized with 0.5% Marcaine plain. I then closed the subcutaneous fat layer with a running 3-0 Vicryl stitch. The skin was closed with skin gene. Sterile dressings were applied. All counts were complete and correct at the end of the case. The patient tolerated the procedure well and was taken to the PACU in stable condition. YAMILET ROBERTS /[id number] RYLEE
--- NOTE | 2019-10-01 03:31 | PCM.POSTAN ---
POST ANESTHESIA ASSESSMENT - MENTAL STATUS Mental Status: Alert - VITAL SIGNS Vital Signs: Last Vital Signs Temp 36.6 C 10/01/19 00:33 Pulse 67 10/01/19 00:33 Resp 16 10/01/19 00:33 BP 136/43 L 10/01/19 00:33 Pulse Ox 98 10/01/19 00:33 - RESPIRATORY Respiratory Status: Respiratory Rate WNL - CARDIOVASCULAR CV Status: Pulse Rate WNL - GASTROINTESTINAL GI Status: No Symptoms - PAIN Pain Score: 4 (Mso4 4mg x1) Free Text/Narrative:: Sore. Doing well. - POST OP HYDRATION Hydration Status: Adequate & Stable (Doing well. Stable. Ready for transfer to floor.)
[2019-10-01] MEDS: Lactated Ringers 1,000 ML IV SCH ×3 (04:52→23:45)
[2019-10-01] MEDS: Piperacillin/Tazobactam 3.375 GM in Sodium Chloride 0.9% 50 ML IV SCH ×4 (05:50→23:45)
--- NOTE | 2019-10-01 07:13 | PCM48HPAN ---
Post Anesthesia Note - EVALUATION WITHIN 48HRS OF ANESTHETIC Vital Signs in Normal Range: Yes Patient Participated in Evaluation: Yes Respiratory Function Stable: Yes Airway Patent: Yes Cardiovascular Function Stable: Yes Hydration Status Stable: Yes Pain Control Satisfactory: Yes (Some soreness.) Nausea and Vomiting Control Satisfactory: Yes Mental Status Recovered: Yes Vital Signs: Last Vital Signs Temp 36.3 C 10/01/19 06:16 Pulse 70 10/01/19 06:16 Resp 16 10/01/19 06:16 BP 104/47 L 10/01/19 06:16 Pulse Ox 95 10/01/19 06:16 - COMMENTS/OBSERVATIONS Free Text/Narrative:: Doing well. No problems noted.
--- NOTE | 2019-10-01 09:41 | PCM.SURGPN ---
- General Info Date of Service: 10/01/19 Date of Surgery/Procedure: 10/01/19 POD#: 0 Functional Status: Reports: Pain Controlled, Other (NG with scant output. No nausea. Pain well controlled. Vitals stable. Patient hasn't urinated since surgery. ) - Review of Systems HEENT: Reports: No Symptoms Pulmonary: Reports: No Symptoms Cardiovascular: Reports: No Symptoms Gastrointestinal: Reports: No Symptoms. Denies: Flatus Genitourinary: Reports: No Symptoms - Patient Data Vitals - Most Recent: Last Vital Signs Temp 36.3 C 10/01/19 06:16 Pulse 70 10/01/19 06:16 Resp 16 10/01/19 06:16 BP 104/47 L 10/01/19 06:16 Pulse Ox 95 10/01/19 06:16 Weight - Most Recent: 63.503 kg I&O - Last 24 Hours: Intake & Output 09/30/19 10/01/19 10/01/19 22:59 06:59 14:59 Intake Total 3150 Output Total 600 Balance 2550 Lab Results Last 24 Hrs: Laboratory Results - last 24 hr 09/30/19 09/30/19 09/30/19 Range/Units 20:45 20:45 20:45 WBC 9.27 (4.0-11.0) K/uL RBC 4.02 L (4.30-5.90) M/uL Hgb 13.1 (12.0-16.0) g/dL Hct 39.2 (36.0-46.0) % MCV 97.5 (80.0-98.0) fL MCH 32.6 H (27.0-32.0) pg MCHC 33.4 (31.0-37.0) g/dL RDW Std Deviation 44.7 (28.0-62.0) fl RDW Coeff of [place] 12 (11.0-15.0) % Plt Count 178 (150-400) K/uL MPV 9.70 (7.40-12.00) fL Neut % (Auto) 68.7 (48.0-80.0) % Lymph % (Auto) 25.5 (16.0-40.0) % [place] % (Auto) 5.3 (0.0-15.0) % Eos % (Auto) 0.2 (0.0-7.0) % Baso % (Auto) 0.3 (0.0-1.5) % Neut # (Auto) 6.4 H (1.4-5.7) K/uL Lymph # (Auto) 2.4 (0.6-2.4) K/uL [place] # (Auto) 0.5 (0.0-0.8) K/uL Eos # (Auto) 0.0 (0.0-0.7) K/uL Baso # (Auto) 0.0 (0.0-0.1) K/uL Nucleated RBC % 0.0 /100WBC Nucleated RBCs # 0 K/uL Lactate 1.1 (0.20-2.00) mmol/L Sodium 144 (136-145) mmol/L Potassium 3.7 (3.5-5.1) mmol/L Chloride 105 (98-107) mmol/L Carbon Dioxide 28.2 (21.0-32.0) mmol/L BUN 18 (7.0-18.0) mg/dL Creatinine 0.8 (0.6-1.0) mg/dL Est Cr Clr Drug Dosing 68.26 mL/min Estimated GFR (MDRD) > 60.0 ml/min Glucose 131 H (74-106) mg/dL Calcium 9.0 (8.5-10.1) mg/dL Total Bilirubin 0.4 (0.2-1.0) mg/dL AST 20 (15-37) IU/L ALT 23 (14-63) IU/L Alkaline Phosphatase 52 (46-116) U/L Total Protein 7.3 (6.4-8.2) g/dL Albumin 4.2 (3.4-5.0) g/dL Globulin 3.1 (2.6-4.0) g/dL Albumin/Globulin Ratio 1.4 (0.9-1.6) Lipase 101 (73-393) U/L Urine Color Urine Appearance Urine pH (5.0-8.0) Ur Specific [place] (1.001-1.035) Urine Protein (NEGATIVE) mg/dL Urine Glucose (UA) (NEGATIVE) mg/dL Urine Ketones (NEGATIVE) mg/dL Urine Occult Blood (NEGATIVE) Urine Nitrite (NEGATIVE) Urine Bilirubin (NEGATIVE) Urine Urobilinogen (<2.0) EU/dL Ur Leukocyte Esterase (NEGATIVE) Urine RBC (0-2/HPF) Urine WBC (0-5/HPF) Ur Epithelial Cells (NONE-FEW) Amorphous Sediment (NEGATIVE) Urine Bacteria (NEGATIVE) 09/30/19 Range/Units 21:50 WBC (4.0-11.0) K/uL RBC (4.30-5.90) M/uL Hgb (12.0-16.0) g/dL Hct (36.0-46.0) % MCV (80.0-98.0) fL MCH (27.0-32.0) pg MCHC (31.0-37.0) g/dL RDW Std Deviation (28.0-62.0) fl RDW Coeff of [place] (11.0-15.0) % Plt Count (150-400) K/uL MPV (7.40-12.00) fL Neut % (Auto) (48.0-80.0) % Lymph % (Auto) (16.0-40.0) % [place] % (Auto) (0.0-15.0) % Eos % (Auto) (0.0-7.0) % Baso % (Auto) (0.0-1.5) % Neut # (Auto) (1.4-5.7) K/uL Lymph # (Auto) (0.6-2.4) K/uL [place] # (Auto) (0.0-0.8) K/uL Eos # (Auto) (0.0-0.7) K/uL Baso # (Auto) (0.0-0.1) K/uL Nucleated RBC % /100WBC Nucleated RBCs # K/uL Lactate (0.20-2.00) mmol/L Sodium (136-145) mmol/L Potassium (3.5-5.1) mmol/L Chloride (98-107) mmol/L Carbon Dioxide (21.0-32.0) mmol/L BUN (7.0-18.0) mg/dL Creatinine (0.6-1.0) mg/dL Est Cr Clr Drug Dosing mL/min Estimated GFR (MDRD) ml/min Glucose (74-106) mg/dL Calcium (8.5-10.1) mg/dL Total Bilirubin (0.2-1.0) mg/dL AST (15-37) IU/L ALT (14-63) IU/L Alkaline Phosphatase (46-116) U/L Total Protein (6.4-8.2) g/dL Albumin (3.4-5.0) g/dL Globulin (2.6-4.0) g/dL Albumin/Globulin Ratio (0.9-1.6) Lipase (73-393) U/L Urine Color YELLOW Urine Appearance SLT CLOUDY Urine pH 8.5 H (5.0-8.0) Ur Specific [place] 1.020 (1.001-1.035) Urine Protein NEGATIVE (NEGATIVE) mg/dL Urine Glucose (UA) NEGATIVE (NEGATIVE) mg/dL Urine Ketones >=80 (NEGATIVE) mg/dL Urine Occult Blood NEGATIVE (NEGATIVE) Urine Nitrite NEGATIVE (NEGATIVE) Urine Bilirubin NEGATIVE (NEGATIVE) Urine Urobilinogen 0.2 (<2.0) EU/dL Ur Leukocyte Esterase TRACE H (NEGATIVE) Urine RBC 0-1 (0-2/HPF) Urine WBC 4-7 (0-5/HPF) Ur Epithelial Cells OCCASIONAL (NONE-FEW) Amorphous Sediment HEAVY (NEGATIVE) Urine Bacteria RARE (NEGATIVE) Med Orders - Current: Current Medications Hydromorphone HCl (Dilaudid) 0.5 mg IVPUSH Q1H PRN PRN Reason: Pain Lactated Ringer's (Ringers, Lactated) 1,000 mls @ 125 mls/hr IV ASDIRECTED [facility] Last Admin: 10/01/19 04:52 Dose: 125 mls/hr Piperacillin Sod/Tazobactam (Sod 3.375 gm/ Sodium Chloride) 50 mls @ 100 mls/ hr IV Q6H [facility] Last Admin: 10/01/19 05:50 Dose: 100 mls/hr Ketorolac Tromethamine (Toradol) 30 mg IVPUSH Q8H PRN PRN Reason: Pain Stop: 10/06/19 02:51 Ondansetron HCl (Zofran) 4 mg PO Q6H PRN PRN Reason: Nausea/Vomiting Sodium Chloride (Saline Flush) 10 ml FLUSH ASDIRECTED PRN PRN Reason: Keep Vein Open Sodium Chloride (Saline Flush) 2.5 ml FLUSH ASDIRECTED PRN PRN Reason: Keep Vein Open Sodium Chloride (Normal Saline) 10 ml IV ASDIRECTED PRN PRN Reason: IV Use Discontinued Medications Bupivacaine HCl (Marcaine 0.5%) Confirm Administered Dose 120 ml .ROUTE .STK- MED ONE Stop: 10/01/19 01:00 Cefazolin Sodium (Ancef) Confirm Administered Dose 1 gm .ROUTE .STK-MED ONE Stop: 10/01/19 01:00 Al Hydroxide/Mg Hydroxide 15 ml/ Metoclopramide HCl 5 mg/Lidocaine HCl 5 ml 0 ml PO ONETIME ONE Stop: 09/30/19 20:38 Last Admin: 09/30/19 20:52 Dose: 25 each Fentanyl (Sublimaze) Confirm Administered Dose 100 mcg .ROUTE .STK-MED ONE Stop: 10/01/19 00:34 Glycopyrrolate (Robinul) Confirm Administered Dose 0.2 mg .ROUTE .STK-MED ONE Stop: 10/01/19 00:34 Sodium Chloride (Normal Saline) 1,000 mls @ 999 mls/hr IV STAT ONE Stop: 09/30/19 21:34 Last Admin: 09/30/19 20:53 Dose: 999 mls/hr Cefazolin Sodium/Dextrose 2 gm (/ Premix) 50 mls @ 100 mls/hr IV ONETIME ONE Stop: 10/01/19 00:49 Last Admin: 10/01/19 00:28 Dose: 100 mls/hr Lactated Ringer's (Ringers, Lactated) 1,000 mls @ 999 mls/hr IV .BOLUS ONE Stop: 10/01/19 01:22 Last Admin: 10/01/19 00:28 Dose: 999 mls/hr Acetaminophen (Ofirmev) Confirm Administered Dose 100 mls @ as directed .ROUTE .STK-MED ONE Stop: 10/01/19 00:41 Ketorolac Tromethamine (Toradol) 30 mg IVPUSH ONETIME ONE Stop: 09/30/19 21:07 Last Admin: 09/30/19 21:15 Dose: 30 mg Ketorolac Tromethamine (Toradol) Confirm Administered Dose 30 mg .ROUTE .STK- MED ONE Stop: 10/01/19 00:34 Midazolam HCl (Versed 1 Mg/Ml) Confirm Administered Dose 2 mg .ROUTE .STK-MED ONE Stop: 10/01/19 00:34 Morphine Sulfate (Morphine) 2 mg IVPUSH ONETIME ONE Stop: 09/30/19 21:52 Last Admin: 09/30/19 22:02 Dose: 2 mg Morphine Sulfate (Morphine) Confirm Administered Dose 10 mg .ROUTE .STK-MED ONE Stop: 10/01/19 00:38 Morphine Sulfate (Morphine) 4 mg IVPUSH ONETIME ONE Stop: 10/01/19 01:57 Last Admin: 10/01/19 03:04 Dose: 4 mg Ondansetron HCl (Zofran) 4 mg IVPUSH ONETIME ONE Stop: 09/30/19 20:35 Last Admin: 09/30/19 20:53 Dose: 4 mg Ondansetron HCl (Zofran) 4 mg IVPUSH ONETIME ONE Stop: 09/30/19 21:43 Last Admin: 09/30/19 21:46 Dose: 4 mg Ondansetron HCl (Zofran) Confirm Administered Dose 4 mg .ROUTE .STK-MED ONE Stop: 10/01/19 00:33 Promethazine HCl (Phenergan) 25 mg IM ONETIME ONE Stop: 10/01/19 00:06 Last Admin: 10/01/19 04:56 Dose: Not Given Propofol (Diprivan 20 Ml) Confirm Administered Dose 200 mg .ROUTE .STK-MED ONE Stop: 10/01/19 00:33 Rocuronium [place] (Zemuron) Confirm Administered Dose 100 mg .ROUTE .STK-MED ONE Stop: 10/01/19 00:34 Rocuronium [place] (Zemuron) Confirm Administered Dose 100 mg .ROUTE .STK-MED ONE Stop: 10/01/19 01:49 Sugammadex Sodium (Bridion) Confirm Administered Dose 200 mg .ROUTE .STK-MED ONE Stop: 10/01/19 00:41 - Exam Wound/Incisions: Healing Well, Dressing Dry and Intact General: Alert, Oriented, Cooperative Lungs: Clear to Auscultation, Normal Respiratory Effort Cardiovascular: Regular Rate, Regular Rhythm GI/Abdominal Exam: Soft, Non-Tender, No Distention, No Mass Skin: Warm, Dry, Intact Neurological: No New Focal Deficit Psy/Mental Status: Alert, Normal Affect, Normal Mood Sepsis Event Note - Evaluation Sepsis Screening Result: No Definite Risk - Focused Exam Vital Signs: Vital Signs Temp Pulse Resp BP Pulse Ox 10/01/19 06:16 36.3 C 70 16 104/47 L 95 10/01/19 05:35 64 106/46 L 10/01/19 05:05 68 100/47 L 10/01/19 04:35 62 16 114/50 L 96 10/01/19 04:20 58 L 14 113/53 L 93 L 10/01/19 04:05 36.2 C 58 L 14 128/67 97 10/01/19 03:50 36.3 C 63 12 140/79 97 10/01/19 03:35 76 18 116/53 L 97 10/01/19 03:30 84 13 108/56 L 95 10/01/19 03:25 94 12 119/67 95 10/01/19 03:20 73 11 L 112/54 L 95 10/01/19 03:15 76 11 L 115/67 96 10/01/19 03:10 70 11 L 117/62 100 10/01/19 03:05 81 12 115/61 100 10/01/19 03:00 77 12 115/67 100 10/01/19 02:55 82 13 122/66 100 10/01/19 02:50 68 13 130/67 100 10/01/19 02:45 36.6 C 84 15 112/85 100 10/01/19 00:33 36.6 C 67 16 136/43 L 98 10/01/19 00:01 36.4 C 81 18 136/43 L 97 09/30/19 23:15 65 115/62 99 09/30/19 21:47 63 19 130/55 L 99 Date Exam was Performed: 10/01/19 Time Exam was Performed: 09:42 - Problem List & Annotations (1) Small bowel obstruction SNOMED Code(s): 253279579 Code(s): K56.609 - UNSP INTESTNL OBST, UNSP TO PARTIAL VERSUS COMPLETE OBST Status: Acute Current Visit: Yes (2) Appendicitis SNOMED Code(s): 34805311 Code(s): K37 - UNSPECIFIED APPENDICITIS Status: Acute Current Visit: Yes (3) Intra-abdominal adhesions SNOMED Code(s): 218027013 Code(s): K66.0 - PERITONEAL ADHESIONS (POSTPROCEDURAL) (POSTINFECTION) Status: Acute Current Visit: Yes - Problem List Review Problem List Initiated/Reviewed/Updated: Yes - My Orders Last 24 Hours: Active Orders 24 hr Category Date Time Status Patient Status [ADT] Routine ADT 10/01/19 00:20 Active Antiembolic Devices [RC] PER UNIT ROUTINE Care 10/01/19 00:22 Active NG [Gastrointestinal Tube Mgmt] [RC] Q12H Care 10/01/19 02:49 Active RT Incentive Spirometry [RC] Q1HWA Care 10/01/19 00:20 Active Verify Patient Consent Obtain [RC] ASDIRECTED Care 10/01/19 00:20 Active Clear Liquid Diet [DIET] Diet 10/01/19 Lunch Active CULTURE URINE [RM] Stat Lab 09/30/19 21:50 Received HYDROmorphone [Dilaudid] Med 10/01/19 02:50 Active 0.5 mg IVPUSH Q1H PRN Ketorolac [Toradol] Med 10/01/19 12:00 Active 30 mg IVPUSH Q8H PRN Lactated Ringers [Ringers, Lactated] 1,000 ml Med 10/01/19 00:30 Active IV ASDIRECTED Ondansetron [Zofran] Med 10/01/19 02:53 Active 4 mg PO Q6H PRN Piperacillin/Tazobactam [Piperacil-Tazobact] 3.375 gm Med 10/01/19 06:00 Active Sodium Chloride 0.9% [Normal Saline] 50 ml IV Q6H Sodium Chloride 0.9% [Normal Saline] Med 10/01/19 00:20 Active 10 ml IV ASDIRECTED PRN Sodium Chloride 0.9% [Saline Flush] Med 10/01/19 00:20 Active 10 ml FLUSH ASDIRECTED PRN Sodium Chloride 0.9% [Saline Flush] Med 10/01/19 00:20 Active 2.5 ml FLUSH ASDIRECTED PRN Nasogastric Orogastric Tube Removal [OM.PC] Routine Oth 10/01/19 07:37 Ordered Peripheral IV Insertion Adult [OM.PC] Routine Oth 10/01/19 00:20 Ordered Sequential Compression Device [OM.PC] Routine Oth 10/01/19 00:20 Ordered Resuscitation Status Routine Resus Stat 10/01/19 00:20 Ordered Medication Orders Hydromorphone HCl (Dilaudid) 0.5 mg IVPUSH Q1H PRN PRN Reason: Pain Lactated Ringer's (Ringers, Lactated) 1,000 mls @ 125 mls/hr IV ASDIRECTED [facility] Last Admin: 10/01/19 04:52 Dose: 125 mls/hr Piperacillin Sod/Tazobactam (Sod 3.375 gm/ Sodium Chloride) 50 mls @ 100 mls/ hr IV Q6H [facility] Last Admin: 10/01/19 05:50 Dose: 100 mls/hr Ketorolac Tromethamine (Toradol) 30 mg IVPUSH Q8H PRN PRN Reason: Pain Stop: 10/06/19 02:51 Ondansetron HCl (Zofran) 4 mg PO Q6H PRN PRN Reason: Nausea/Vomiting Sodium Chloride (Saline Flush) 10 ml FLUSH ASDIRECTED PRN PRN Reason: Keep Vein Open Sodium Chloride (Saline Flush) 2.5 ml FLUSH ASDIRECTED PRN PRN Reason: Keep Vein Open Sodium Chloride (Normal Saline) 10 ml IV ASDIRECTED PRN PRN Reason: IV Use - Plan Plan (Free Text/Narrative):: Pain: IV dilaudid 0.5mg q 1hr prn severe pain. [place] 325-5 mg 2 tab q 4hr prn moderate pain. IV toradol 30mg q 6hr starting at noon if mod-severe pain. CV/Pulm: VSS. Encourage IS use and out of bed activity. GI: NG to be removed. Ok to advance to clears for now. Prn zofran if having nausea. Renal: No UOP since case. Bladder scan. If >600ml in bladder, straight cath. Continue IVF until taking adequate po. ID: Given appendicitis picture, will keep IV antibiotics for today (24 hours after case). If no signs of infection will stop tomorrow. Heme: minimal blood loss. No need for labs unless clinically indicated. Px: Given po intake no need for GI px at this time. SCDs. Heparin for DVT px.
[2019-10-01] MEDS: Heparin Sodium 5,000 Units/ML Vial SUBCUT SCH ×2 (10:33→22:04)
[2019-10-01] MEDS: Ketorolac 15 MG/ML SDV IVPUSH PRN (13:18)
[2019-10-02] MEDS: Ketorolac 15 MG/ML SDV IVPUSH PRN (05:27)
[2019-10-02] MEDS: Piperacillin/Tazobactam 3.375 GM in Sodium Chloride 0.9% 50 ML IV SCH (05:41)
[2019-10-02] MEDS: Heparin Sodium 5,000 Units/ML Vial SUBCUT SCH ×2 (09:08→21:42)
--- NOTE | 2019-10-02 10:07 | PCM.SURGPN ---
- General Info Date of Service: 10/02/19 Date of Surgery/Procedure: 10/01/19 POD#: 1 Functional Status: Reports: Pain Controlled, Tolerating Diet, Ambulating, Urinating, Other (No flatus. Denies feeling nauseated or distended. Pain well controlled. ) - Review of Systems General: Reports: No Symptoms HEENT: Reports: No Symptoms Pulmonary: Reports: No Symptoms Cardiovascular: Reports: No Symptoms Gastrointestinal: Reports: No Symptoms Genitourinary: Reports: No Symptoms Musculoskeletal: Reports: No Symptoms Skin: Reports: No Symptoms - Patient Data Vitals - Most Recent: Last Vital Signs Temp 36.4 C 10/02/19 07:15 Pulse 73 10/02/19 07:15 Resp 14 10/02/19 07:15 BP 115/59 L 10/02/19 07:15 Pulse Ox 95 10/02/19 07:15 Weight - Most Recent: 63.503 kg I&O - Last 24 Hours: Intake & Output 10/01/19 10/02/19 10/02/19 22:59 06:59 14:59 Intake Total 1700 1790 Output Total 750 1100 Balance 950 690 [place] Results Last 24 Hrs: Microbiology 09/30/19 21:50 Urine Culture - Final Urine, Clean Catch MIXED FRANCI 1,000-10,000 CFU/ML Med Orders - Current: Current Medications Acetaminophen (Tylenol) 650 mg PO Q6H PRN PRN Reason: Pain Heparin Sodium (Porcine) (Heparin Sodium) 5,000 units SUBCUT Q12H [facility] Last Admin: 10/02/19 09:08 Dose: 5,000 units Hydromorphone HCl (Dilaudid) 0.5 mg IVPUSH Q1H PRN PRN Reason: Pain Ketorolac Tromethamine (Toradol) 30 mg IVPUSH Q8H PRN PRN Reason: Pain Stop: 10/06/19 02:51 Last Admin: 10/02/19 05:27 Dose: 30 mg Ondansetron HCl (Zofran) 4 mg PO Q6H PRN PRN Reason: Nausea/Vomiting Last Admin: 10/01/19 10:06 Dose: 4 mg Sodium Chloride (Saline Flush) 10 ml FLUSH ASDIRECTED PRN PRN Reason: Keep Vein Open Sodium Chloride (Saline Flush) 2.5 ml FLUSH ASDIRECTED PRN PRN Reason: Keep Vein Open Sodium Chloride (Normal Saline) 10 ml IV ASDIRECTED PRN PRN Reason: IV Use Discontinued Medications Bupivacaine HCl (Marcaine 0.5%) Confirm Administered Dose 120 ml .ROUTE .STK- MED ONE Stop: 10/01/19 01:00 Cefazolin Sodium (Ancef) Confirm Administered Dose 1 gm .ROUTE .STK-MED ONE Stop: 10/01/19 01:00 Al Hydroxide/Mg Hydroxide 15 ml/ Metoclopramide HCl 5 mg/Lidocaine HCl 5 ml 0 ml PO ONETIME ONE Stop: 09/30/19 20:38 Last Admin: 09/30/19 20:52 Dose: 25 each Fentanyl (Sublimaze) Confirm Administered Dose 100 mcg .ROUTE .STK-MED ONE Stop: 10/01/19 00:34 Glycopyrrolate (Robinul) Confirm Administered Dose 0.2 mg .ROUTE .STK-MED ONE Stop: 10/01/19 00:34 Sodium Chloride (Normal Saline) 1,000 mls @ 999 mls/hr IV STAT ONE Stop: 09/30/19 21:34 Last Admin: 09/30/19 20:53 Dose: 999 mls/hr Cefazolin Sodium/Dextrose 2 gm (/ Premix) 50 mls @ 100 mls/hr IV ONETIME ONE Stop: 10/01/19 00:49 Last Admin: 10/01/19 00:28 Dose: 100 mls/hr Lactated Ringer's (Ringers, Lactated) 1,000 mls @ 125 mls/hr IV ASDIRECTED [facility] Last Admin: 10/01/19 23:45 Dose: 125 mls/hr Lactated Ringer's (Ringers, Lactated) 1,000 mls @ 999 mls/hr IV .BOLUS ONE Stop: 10/01/19 01:22 Last Admin: 10/01/19 00:28 Dose: 999 mls/hr Acetaminophen (Ofirmev) Confirm Administered Dose 100 mls @ as directed .ROUTE .STK-MED ONE Stop: 10/01/19 00:41 Piperacillin Sod/Tazobactam (Sod 3.375 gm/ Sodium Chloride) 50 mls @ 100 mls/ hr IV Q6H [facility] Last Admin: 10/02/19 05:41 Dose: 100 mls/hr Ketorolac Tromethamine (Toradol) 30 mg IVPUSH ONETIME ONE Stop: 09/30/19 21:07 Last Admin: 09/30/19 21:15 Dose: 30 mg Ketorolac Tromethamine (Toradol) Confirm Administered Dose 30 mg .ROUTE .STK- MED ONE Stop: 10/01/19 00:34 Midazolam HCl (Versed 1 Mg/Ml) Confirm Administered Dose 2 mg .ROUTE .STK-MED ONE Stop: 10/01/19 00:34 Morphine Sulfate (Morphine) 2 mg IVPUSH ONETIME ONE Stop: 09/30/19 21:52 Last Admin: 09/30/19 22:02 Dose: 2 mg Morphine Sulfate (Morphine) Confirm Administered Dose 10 mg .ROUTE .STK-MED ONE Stop: 10/01/19 00:38 Morphine Sulfate (Morphine) 4 mg IVPUSH ONETIME ONE Stop: 10/01/19 01:57 Last Admin: 10/01/19 03:04 Dose: 4 mg Ondansetron HCl (Zofran) 4 mg IVPUSH ONETIME ONE Stop: 09/30/19 20:35 Last Admin: 09/30/19 20:53 Dose: 4 mg Ondansetron HCl (Zofran) 4 mg IVPUSH ONETIME ONE Stop: 09/30/19 21:43 Last Admin: 09/30/19 21:46 Dose: 4 mg Ondansetron HCl (Zofran) Confirm Administered Dose 4 mg .ROUTE .STK-MED ONE Stop: 10/01/19 00:33 Promethazine HCl (Phenergan) 25 mg IM ONETIME ONE Stop: 10/01/19 00:06 Last Admin: 10/01/19 04:56 Dose: Not Given Propofol (Diprivan 20 Ml) Confirm Administered Dose 200 mg .ROUTE .STK-MED ONE Stop: 10/01/19 00:33 Rocuronium [place] (Zemuron) Confirm Administered Dose 100 mg .ROUTE .STK-MED ONE Stop: 10/01/19 00:34 Rocuronium [place] (Zemuron) Confirm Administered Dose 100 mg .ROUTE .STK-MED ONE Stop: 10/01/19 01:49 Sugammadex Sodium (Bridion) Confirm Administered Dose 200 mg .ROUTE .STK-MED ONE Stop: 10/01/19 00:41 - Exam Wound/Incisions: Healing Well, Dressing Dry and Intact General: Alert, Oriented, Cooperative Lungs: Clear to Auscultation, Normal Respiratory Effort Cardiovascular: Regular Rate, Regular Rhythm GI/Abdominal Exam: Soft, Non-Tender, No Distention, No Mass Skin: Warm, Dry, Intact Neurological: No New Focal Deficit Psy/Mental Status: Alert, Normal Affect Sepsis Event Note - Evaluation Sepsis Screening Result: No Definite Risk - Focused Exam Vital Signs: Vital Signs Temp Pulse Resp BP Pulse Ox 10/02/19 07:15 36.4 C 73 14 115/59 L 95 10/02/19 04:59 36.3 C 72 18 123/54 L 97 10/01/19 23:59 37.2 C 76 16 110/60 95 Date Exam was Performed: 10/02/19 Time Exam was Performed: 10:05 - Problem List & Annotations (1) Small bowel obstruction SNOMED Code(s): 245402181 Code(s): K56.609 - UNSP INTESTNL OBST, UNSP TO PARTIAL VERSUS COMPLETE OBST Status: Acute Current Visit: Yes (2) Appendicitis SNOMED Code(s): 93532947 Code(s): K37 - UNSPECIFIED APPENDICITIS Status: Acute Current Visit: Yes (3) Intra-abdominal adhesions SNOMED Code(s): 707833059 Code(s): K66.0 - PERITONEAL ADHESIONS (POSTPROCEDURAL) (POSTINFECTION) Status: Acute Current Visit: Yes - Problem List Review Problem List Initiated/Reviewed/Updated: Yes - My Orders Last 24 Hours: Active Orders 24 hr Category Date Time Status Bladder Scan [RC] ASDIRECTED Care 10/01/19 09:49 Active Communication Order [RC] DAILY Care 10/01/19 09:49 Active Clear Liquid Diet [DIET] Diet 10/01/19 Lunch Active Acetaminophen [Tylenol] Med 10/01/19 13:10 Active 650 mg PO Q6H PRN Heparin Sodium Med 10/01/19 10:00 Active 5,000 units SUBCUT Q12H Ketorolac [Toradol] Med 10/01/19 12:00 Active 30 mg IVPUSH Q8H PRN Medication Orders Acetaminophen (Tylenol) 650 mg PO Q6H PRN PRN Reason: Pain Heparin Sodium (Porcine) (Heparin Sodium) 5,000 units SUBCUT Q12H [facility] Last Admin: 10/02/19 09:08 Dose: 5,000 units Admin: 10/01/19 22:04 Dose: 5,000 units Admin: 10/01/19 10:33 Dose: 5,000 units Hydromorphone HCl (Dilaudid) 0.5 mg IVPUSH Q1H PRN PRN Reason: Pain Ketorolac Tromethamine (Toradol) 30 mg IVPUSH Q8H PRN PRN Reason: Pain Stop: 10/06/19 02:51 Last Admin: 10/02/19 05:27 Dose: 30 mg Admin: 10/01/19 13:18 Dose: 30 mg Ondansetron HCl (Zofran) 4 mg PO Q6H PRN PRN Reason: Nausea/Vomiting Last Admin: 10/01/19 10:06 Dose: 4 mg Sodium Chloride (Saline Flush) 10 ml FLUSH ASDIRECTED PRN PRN Reason: Keep Vein Open Sodium Chloride (Saline Flush) 2.5 ml FLUSH ASDIRECTED PRN PRN Reason: Keep Vein Open Sodium Chloride (Normal Saline) 10 ml IV ASDIRECTED PRN PRN Reason: IV Use - Plan Plan (Free Text/Narrative):: Patient has minimal bowel sounds, but abdomen is otherwise benign. Continue clear liquid diet for today until patient is passing gas. Will discontinue IV fluids and IV antibiotics. Pain control with Tylenol and Toradol is preferred the patient has IV and oral narcotics available if needed. Continue to encourage out of bed activity.
[2019-10-02] MEDS: Acetaminophen 325 MG Tab PO PRN (21:43)
[2019-10-03] MEDS ORDERED: Polyethylene Glycol 3350 Powder 17 GM Packet PO SCH (09:00)
[2019-10-03] MEDS: Heparin Sodium 5,000 Units/ML Vial SUBCUT SCH (09:26)
[2019-10-03] MEDS: Acetaminophen 325 MG Tab PO PRN (13:53)
--- NOTE | 2019-10-03 15:07 | PCM.DCSUM1 ---
Discharge Summary - Hospital Course Free Text/Narrative:: Patient is a 63 year old female who presented with abdominal pain nausea and vomiting. She had a CT scan that showed a possible internal hernia causing a SBO. An ex lap was performed which showed acute appendicitis with a adhesions that had caused a torsion in the bowel. She had an appendectomy. She did extremely well post operatively. She had one episode of emesis when getting up for the first time, but otherwise had no other nausea or vomiting. She had return of bowel function on POD #1. Her diet was advanced from clears to regular over the course of the next 24 hours. She tolerated this well with no abdominal pain, distension, nausea or vomiting. She had very good pain control with tylenol alone. She ambulated without difficulty. Her vitals remained stable. Her dressings were removed on POD #2. There was some ecchymosis on the right lower aspect of the incision, but otherwise it was clean dry and intact. Her pathology report showed acute on chronic appendicitis. She was cleared for d /c home. - Discharge Data Discharge Date: 10/03/19 Discharge Disposition: Home, Self-Care 01 Condition: Stable - Referral to Home Health Primary Care Physician: Susan Ruiz NP - Discharge Diagnosis/Problem(s) (1) Small bowel obstruction SNOMED Code(s): 134007617 ICD Code: K56.609 - UNSP INTESTNL OBST, UNSP TO PARTIAL VERSUS COMPLETE OBST Status: Acute Current Visit: Yes (2) Appendicitis SNOMED Code(s): 32898516 ICD Code: K37 - UNSPECIFIED APPENDICITIS Status: Acute Current Visit: Yes (3) Intra-abdominal adhesions SNOMED Code(s): 864163200 ICD Code: K66.0 - PERITONEAL ADHESIONS (POSTPROCEDURAL) (POSTINFECTION) Status: Acute Current Visit: Yes - Patient Summary/Data Operative Procedure(s) Performed: exploratory laparotomy, appendectomy, lysis of adhesion - Patient Instructions Diet: Regular Diet as Tolerated, Drink 8-10+ Glasses/Day Diet, Other: Small frequent meals Activity: No Lifting Over 20 Pounds (for six weeks ), Rest and Relax Today Activity, Other: No work for 2 weeks after surgery Driving: Do Not Drive (for one week after surgery ) Showering/Bathing: May Shower, No Tub Bathing/Swimming (for 2 weeks ) Wound/Incision Care: Keep Operative Site/Wound Site Clean and Dry Notify Provider of: Fever, Increased Pain, Swelling and Redness, Drainage, Nausea and/or Vomiting - Discharge Plan *PRESCRIPTION DRUG MONITORING PROGRAM REVIEWED*: Yes *COPY OF PRESCRIPTION DRUG MONITORING REPORT IN PATIENT [place]: Yes Home Medications: Home Meds . [No Known Home Meds] 09/30/19 [History] Patient Handouts: Bowel Obstruction, [id number], Laparoscopic Appendectomy, Adult, Care After, [id number], Appendicitis, Adult, [id number] Referrals: Susan Ruiz NP [Primary Care Provider] - Leanna Wasserman MD [Physician] - 10/08/19 10:30 am - Discharge Summary/Plan Comment DC Time >30 min.: No - General Info Date of Service: 10/03/19 Functional Status: Reports: Pain Controlled, Tolerating Diet, Ambulating, Urinating - Review of Systems General: Reports: No Symptoms HEENT: Reports: No Symptoms Pulmonary: Reports: No Symptoms Cardiovascular: Reports: No Symptoms Gastrointestinal: Reports: No Symptoms Genitourinary: Reports: No Symptoms Musculoskeletal: Reports: No Symptoms - Patient Data Vitals - Most Recent: Last Vital Signs Temp 36.8 C 10/03/19 12:00 Pulse 72 10/03/19 12:00 Resp 16 10/03/19 12:00 BP 139/75 10/03/19 12:00 Pulse Ox 99 10/03/19 12:00 Weight - Most Recent: 63.503 kg I&O - Last 24 hours: Intake & Output 10/03/19 10/03/19 10/03/19 06:59 14:59 22:59 Intake Total 500 Output Total 1700 Balance -1200 Med Orders - Current: Current Medications Acetaminophen (Tylenol) 650 mg PO Q6H PRN PRN Reason: Pain Last Admin: 10/03/19 13:53 Dose: 650 mg Heparin Sodium (Porcine) (Heparin Sodium) 5,000 units SUBCUT Q12H FLORENTINO Last Admin: 10/03/19 09:26 Dose: 5,000 units Hydromorphone HCl (Dilaudid) 0.5 mg IVPUSH Q1H PRN PRN Reason: Pain Ketorolac Tromethamine (Toradol) 30 mg IVPUSH Q8H PRN PRN Reason: Pain Stop: 10/06/19 02:51 Last Admin: 10/02/19 05:27 Dose: 30 mg Ondansetron HCl (Zofran) 4 mg PO Q6H PRN PRN Reason: Nausea/Vomiting Last Admin: 10/01/19 10:06 Dose: 4 mg Polyethylene Glycol (Miralax) 17 gm PO DAILY FLORENTINO Last Admin: 10/03/19 08:08 Dose: 17 gm Sodium Chloride (Saline Flush) 10 ml FLUSH ASDIRECTED PRN PRN Reason: Keep Vein Open Sodium Chloride (Saline Flush) 2.5 ml FLUSH ASDIRECTED PRN PRN Reason: Keep Vein Open Sodium Chloride (Normal Saline) 10 ml IV ASDIRECTED PRN PRN Reason: IV Use Discontinued Medications Bupivacaine HCl (Marcaine 0.5%) Confirm Administered Dose 120 ml .ROUTE .STK- MED ONE Stop: 10/01/19 01:00 Cefazolin Sodium (Ancef) Confirm Administered Dose 1 gm .ROUTE .STK-MED ONE Stop: 10/01/19 01:00 Al Hydroxide/Mg Hydroxide 15 ml/ Metoclopramide HCl 5 mg/Lidocaine HCl 5 ml 0 ml PO ONETIME ONE Stop: 09/30/19 20:38 Last Admin: 09/30/19 20:52 Dose: 25 each Fentanyl (Sublimaze) Confirm Administered Dose 100 mcg .ROUTE .STK-MED ONE Stop: 10/01/19 00:34 Glycopyrrolate (Robinul) Confirm Administered Dose 0.2 mg .ROUTE .STK-MED ONE Stop: 10/01/19 00:34 Sodium Chloride (Normal Saline) 1,000 mls @ 999 mls/hr IV STAT ONE Stop: 09/30/19 21:34 Last Admin: 09/30/19 20:53 Dose: 999 mls/hr Cefazolin Sodium/Dextrose 2 gm (/ Premix) 50 mls @ 100 mls/hr IV ONETIME ONE Stop: 10/01/19 00:49 Last Admin: 10/01/19 00:28 Dose: 100 mls/hr Lactated Ringer's (Ringers, Lactated) 1,000 mls @ 125 mls/hr IV ASDIRECTED FLOR[place]INO Last Admin: 10/01/19 23:45 Dose: 125 mls/hr Lactated Ringer's (Ringers, Lactated) 1,000 mls @ 999 mls/hr IV .BOLUS ONE Stop: 10/01/19 01:22 Last Admin: 10/01/19 00:28 Dose: 999 mls/hr Acetaminophen (Ofirmev) Confirm Administered Dose 100 mls @ as directed .ROUTE .STK-MED ONE Stop: 10/01/19 00:41 Piperacillin Sod/Tazobactam (Sod 3.375 gm/ Sodium Chloride) 50 mls @ 100 mls/ hr IV Q6H FLOR[place]INO Last Admin: 10/02/19 05:41 Dose: 100 mls/hr Ketorolac Tromethamine (Toradol) 30 mg IVPUSH ONETIME ONE Stop: 09/30/19 21:07 Last Admin: 09/30/19 21:15 Dose: 30 mg Ketorolac Tromethamine (Toradol) Confirm Administered Dose 30 mg .ROUTE .STK- MED ONE Stop: 10/01/19 00:34 Midazolam HCl (Versed 1 Mg/Ml) Confirm Administered Dose 2 mg .ROUTE .STK-MED ONE Stop: 10/01/19 00:34 Morphine Sulfate (Morphine) 2 mg IVPUSH ONETIME ONE Stop: 09/30/19 21:52 Last Admin: 09/30/19 22:02 Dose: 2 mg Morphine Sulfate (Morphine) Confirm Administered Dose 10 mg .ROUTE .STK-MED ONE Stop: 10/01/19 00:38 Morphine Sulfate (Morphine) 4 mg IVPUSH ONETIME ONE Stop: 10/01/19 01:57 Last Admin: 10/01/19 03:04 Dose: 4 mg Ondansetron HCl (Zofran) 4 mg IVPUSH ONETIME ONE Stop: 09/30/19 20:35 Last Admin: 09/30/19 20:53 Dose: 4 mg Ondansetron HCl (Zofran) 4 mg IVPUSH ONETIME ONE Stop: 09/30/19 21:43 Last Admin: 09/30/19 21:46 Dose: 4 mg Ondansetron HCl (Zofran) Confirm Administered Dose 4 mg .ROUTE .STK-MED ONE Stop: 10/01/19 00:33 Promethazine HCl (Phenergan) 25 mg IM ONETIME ONE Stop: 10/01/19 00:06 Last Admin: 10/01/19 04:56 Dose: Not Given Propofol (Diprivan 20 Ml) Confirm Administered Dose 200 mg .ROUTE .STK-MED ONE Stop: 10/01/19 00:33 Rocuronium Datil (Zemuron) Confirm Administered Dose 100 mg .ROUTE .STK-MED ONE Stop: 10/01/19 00:34 Rocuronium Datil (Zemuron) Confirm Administered Dose 100 mg .ROUTE .STK-MED ONE Stop: 10/01/19 01:49 Sugammadex Sodium (Bridion) Confirm Administered Dose 200 mg .ROUTE .STK-MED ONE Stop: 10/01/19 00:41 - Exam General: Reports: Alert, Oriented HEENT: Reports: Pupils Equal, Pupils Reactive Lungs: Reports: Clear to Auscultation, Normal Respiratory Effort Cardiovascular: Reports: Regular Rate, Regular Rhythm GI/Abdominal Exam: Soft, Non-Tender, No Distention, No Mass, Other (ecchymosis along right lower aspect of incision ) Back Exam: Reports: Normal Inspection
== END 2019-10-03 15:38 | disposition home or self-care (01) | DRG 224 ==
LOC: MW.ED 20:23 → MW.MS 23:51 → MW.SDS 10-01 00:09
PROVIDERS: ADMIT Surgery; ATTEND Surgery
PROC: 0DTJ0ZZ Resection of Appendix, Open Approach (ICD-10-PCS; principal; 2019-10-01)
PROC: 0DN80ZZ Release Small Intestine, Open Approach (ICD-10-PCS; 2019-10-01)
DX: K56.51 Intestinal adhesions [bands], with partial obstruction (principal); K35.80 Unspecified acute appendicitis; K36 Other appendicitis; Z88.8 Allergy status to other drugs, medicaments and biological substances; Z90.49 Acquired absence of other specified parts of digestive tract
CPT/HCPCS: 00840; 36415; 74176; 74176-26; 80053; 81001; 83605; 83690; 85025; 87086; 88304; 93005; 96361; 96374; 96375; 96376; 99284; 99285-25; A9270-GY; J0131; J0690; J1644; J1885; J2250; J2270; J2405; J2543; J2704; J3010; J3490; J7030; J7050; J7120